=== PATIENT | female | born 1950 | race Caucasian/White ===

== ENCOUNTER 2019-10-10 01:22 | Day surgery (SDC) | payer OTHER, SELFPAY ==
[2019-09-16 11:54] VITALS: BMI 44.4
[2019-10-10] VITALS (10 sets, daily range): BP systolic 117–152; BP diastolic 61–83; PULSE 57–76; RESP 12–20; TEMP 36.1–36.6; O2SAT 94–100
--- NOTE | ~2019-10-10 | MM_ITS ---
CORRECTED REPORT Description changed to MM surgical specimen RT. See bold/italic text below. 10/10/2019 sef MM surgical specimen RT 10/10/2019 11:12 Indication: Right breast cancer. Wire localization biopsy. Procedure: Specimen radiograph post excisional biopsy Comparison: 10/10/2019 Findings: Specimen radiograph contains the hookwire and tissue marker as well as associated density. Impression: 1: Specimen radiograph contains tissue marker of interest. Please refer to procedural report for details. Reviewed, dictated and finalized at location A. MAKER NICHOL Impression: 1: Specimen radiograph contains tissue marker of interest. Please refer to proc edural report for details.
--- NOTE | ~2019-10-10 | MM_ITS ---
EXAMINATION: MM needle loc RT MAMMOGRAPHY SPECIMEN DATE: 10/10/2019 09:12 ENGAGEMENT ENGINEER INDICATION: Right breast cancer. TECHNIQUE: The procedure for a mammography-guided needle localization was discussed with the patient' s. Risks and benefits were detailed, including risks of bleeding, infection, pain, and nondiagnostic specimen. The patient verbalized understanding and agreed to proceed. The time out was performed to verify the patient's name, date of , and site of procedure. The p atient was placed in right breast compression, and the skin overlying the right breast was prepped in usual fashion. Utilizing mammography guidance, a needle was advanced into the right breast. Two co nfirmatory films were obtained. The patient tolerated procedure without immediate complication. A specimen radiograph was performed.] FINDINGS: Two view confirmatory films of the right breast demonstrate a the wire adjacent to the tiss ue marker. The tissue marker is contained within the surgical specimen.] IMPRESSION: 1. Successful mammography-guided right breast needle localization. Reviewed, dictated and finalized at location A. GEMENT ENGINEER
--- NOTE | ~2019-10-10 | NM_ITS ---
NM sentinel node inject only 10/10/2019 11:17 CLAY DRY PRESS HELPER INDICATION: Right breast cancer] TECHNIQUE: 1 Millicuries Tc 99m filtered sulfur colloid was injected and 4 aliquots in the anterior u pper outer quadrant of the breast near the areola. No images were obtained.] IMPRESSION: 1: Status post right breast sentinel lymph node radiopharmaceutical injection. Reviewed, dictated and finalized at location A. DRY PRESS HELPER
[2019-10-10] MEDS: LACTATED RINGERS 1,000 ML 30 ML IV CONT ×3 (07:00→12:05)
--- NOTE | 2019-10-10 07:56 | PM.IMHP ---
H&P: HPI History of Present Illness Chief complaint: Right Breast Ca/ ER possitive Narrative: Dominga Barron is a 69 year old female Dominga returned to the office after recent ultrasound guided right breast bx on 07/21/19. 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 Because of her recent hospitalization for an incarcerated ventral incisional hernia near the umbilicus she did have her breast surgery as soon as planned. She did keep her appointment with Dr Rodriguez and they did discuss her recent breast cancer. They agreed to do a right breast lumpectomy and SLN bx when patient is healed from recent hernia surgery. Patient reports she will be had a MR of the breasts. which showed no other lesions other than the known right breast tumor. On the MR study the mass was about 9 x 7 x 9 mm in the anterior 3rd of the central right breast and there was no evidence of lymphadenopathy on the MR study. Left breast was reported as normal. Patient reports also had genetic testing completed and Dr Rodriguez had done additional testing on the tissue and she showed no genetic predisposition to breast cancer or other cancers. She was not found to have a genetic predisposition to breast cancer. An Oncotype Tx study showed a recurrence score of 12 which is felt to be low. Patient presents at this time to proceed with the right breast lumpectomy and sentinel lymph node biopsy. Review of Systems Constitutional: Constitutional: Reports no additional constitutional complaints, Reports fatigue and Denies malaise Comments: Obesity with a BMI of 43 Eyes: Eyes: Denies change in vision and Denies loss of vision ENT: Reports Normal hearing present, Denies change in voice, Denies dizziness, Denies hoarseness and Denies sore throat Cardiovascular: Cardiovascular: Denies chest pain, Denies leg edema and Denies dyspnea Respiratory: Respiratory: Denies cough, Denies dyspnea and Denies wheezing Gastrointestinal: Gastrointestinal: Denies hematochezia, Denies change in bowel habits and Denies heartburn Genitourinary: Genitourinary: Denies urinary frequency and Denies urinary incontinence Neurologic: Reports Normal hearing present, Denies confusion, Denies dizziness, Denies loss of vision, Denies memory loss and Denies seizure-like activity Psychiatric: Psychiatric: Denies confusion, Denies depression and Denies memory loss Endocrine: Endocrine: Denies cold intolerance and Reports fatigue Hematologic/Lymphatic: Hematologic/Lymphatic: Denies easy bleeding and Denies easy bruising Allergic/Immunologic: Allergic/Immunologic: Denies wheezing PMFSH Social History Social History Smoking packs per day: 1.5 Smoking cigarettes per day: 30.0 Years smoked: 30 Smoking pack-years: 45.00 Smoking status: Former smoker Tobacco type: cigarettes Second hand tobacco smoke exposure: No Smoking end date: 09/21/01 Alcohol intake: never Substance use type: does not use Additional living arrangements comments: patient lives with her . Gender identity (if verbalized by the patient): Female Spiritual care concerns: No Agree to blood products: Yes Meds Home Medications and Allergies Home Medications Medication Instructions Recorded Confirmed Type Cinnamon 1 tablet PO DAILY 08/09/19 10/10/19 History Fish Oil 1,000 mg PO DAILY 08/09/19 10/10/19 History anastrozole 1 mg PO DAILY #30 tablet 08/13/19 10/10/19 Rx calcium carbonate-vitamin D3 1 cap PO DAILY 09/16/19 10/10/19 History [Calcium 600 + D(3)] Allergies Allergy/AdvReac Type Severity Reaction Status Date / Time oxaliplatin Allergy Severe Dyspnea / Verified 10/10/19 07:29 SOB meloxicam Allergy Unknown Rash Verified 10/10/19 07:29 Viwrbhg-Ucw-Mmj Reductase Allergy Unknown Muscle Verified 10/10/19 07:29 Inhibitor aches Vital Signs Vital Signs - 24 hr 10/10/19 07:34 Temperature 36.1
--- NOTE | 2019-10-10 08:56 | SUR.PREOP ---
[id number] pt to needle loc per wheelchair/family to waiting area 0850 returned from radiology/no distress noted/comfort measures provided/family returned to room
--- NOTE | 2019-10-10 09:17 | WPDANESEPPF ---
Anes - Initial Pre Proc Eval Procedure: Operation Date: 10/10/19 09:30 Proposed Procedures p Right Mammogram And/Or Ultrasound Guided Needle Localization Right Breast Lumpectomy, Right [place] Lymph Node Biopsy, Possible Right Axillary Node Dissection - Leandro Sofia MD Date/Time: 10/10/19 09:17 Surgeon: Leandro Sofia MD Pre Op Diagnosis: Right Breast Ca/ ER possitive Patient Data Age: 69 Gender: F Height: 1.55 m Weight: 104.1 kg Last Vital Signs Temp 36.1 C L 10/10/19 07:34 Pulse 76 10/10/19 07:34 Resp 20 10/10/19 07:34 BP 129/81 10/10/19 07:34 Pulse Ox 100 10/10/19 07:34 Allergies Allergy/AdvReac Type Severity Reaction Status Date / Time oxaliplatin Allergy Severe Dyspnea / Verified 10/10/19 07:29 SOB meloxicam Allergy Unknown Rash Verified 10/10/19 07:29 Mfxrcld-Uyq-Bqm Reductase Allergy Unknown Muscle Verified 10/10/19 07:29 Inhibitor aches Home Medications Medication Instructions Recorded Confirmed Type Cinnamon 1 tablet PO DAILY 08/09/19 10/10/19 History Fish Oil 1,000 mg PO DAILY 08/09/19 10/10/19 History anastrozole 1 mg PO DAILY #30 tablet 08/13/19 10/10/19 Rx calcium carbonate-vitamin D3 1 cap PO DAILY 09/16/19 10/10/19 History [Calcium 600 + D(3)] Patient hx anesthesia problems: none Family hx anesthesia problems: none PMFSH Social History Social History Smoking packs per day: 1.5 Smoking cigarettes per day: 30.0 Years smoked: 30 Smoking pack-years: 45.00 Smoking status: Former smoker Tobacco type: cigarettes Second hand tobacco smoke exposure: No Smoking end date: 09/21/01 Alcohol intake: never Substance use type: does not use Additional living arrangements comments: patient lives with her . Gender identity (if verbalized by the patient): Female Spiritual care concerns: No Agree to blood products: Yes Anes - Eval Final PreProcedure Day of Procedure 10/10/19 09:17 Patient weight: morbidly obese Heart: regular rate and rhythm Lungs: clear to auscultation and normal air movement Airway: Mallampati scale class II Neurological: alert and oriented Last oral intake: >/= 8 hours ASA classification: III Emergent: no Anesthetic plan: proceed Anesthesia type and monitoring: general ETT Informed Consent: The patient's anesthetic plan and its attendant risks and benefits were discussed with the patient/family/POA. Questions were solicited and answers provided to the satisfaction of the patient/family/POA.
[2019-10-10] MEDS: ceFAZolin 2 GM/D5W 50 ML 2 GM/50 ML BAG IVPB (09:35)
[2019-10-10] MEDS: ISOSULFAN BLUE 1% INJ 5 ML VIAL SUB-Q (10:05)
[2019-10-10] MEDS: BUPIVACAINE/EPINEPHRINE 0.25% 50 ML VIAL INFILTRATE (10:42)
[2019-10-10] MEDS: PROPARACAINE HCL 0.5% 15 ML OPHTH SOLN 1 DROP EACH EYE (13:43)
--- NOTE | 2019-10-10 14:00 | PM.PROC ---
Procedure Note - Detailed Date of procedure: 10/10/19 Pre-op diagnosis: Right Breast Ca/ ER possitive Post-op diagnosis: same Procedure performed: Needle localized right breast lumpectomy [place] lymph node biopsy x3 right axilla. Injection of Lymphazurin blue, periareolar.(for dentification of sentinel node) Description of procedure: The patient was seen preoperatively in the holding area, and I marked the patient on the operative side.(the Right). She was brought to the operating room and anesthesia delivered. She was prepped and draped in the usual sterile fashion. A timeout was performed confirming patient and site of surgery. Then after inspection of the breast I carefully used Lymphazarin blue 5 cc to inject 1 cc in the subcuticular area the areola at the edge of the areola at [address] This was done with a 22 gauge needle and then the breast was massaged for 1 minute. An axillary incision was made, and the subcutaneous tissues were dissected with electrocautery and the clavipectoral fascia was incised with electrocautery. Using the sentinel lymph node probe, the sentinel lymph node was identified and the count in vivo was 2039 . I carefully dissected out what to be a lymph node that was marked with high counts and also with a small blue green lymphatic heading directly to it. There was some blue green dye that appeared to be in the lymph node in the center of the approximately 2 x 1 cm area of the axillary tissue removed. Then [place] 10[place] [address] was recorded. The count in the axilla after removing this lymph node was between 120 and 150, for background noise. The sentinel lymph node was sent fresh for pathologic evaluation. The wound was irrigated, hemostased, and closed with 3-0 Vicryl and 4-0 Monocryl. That wound was draped away with a sterile towel and the operative breast was examined. The localizing wire was noted to be entering the breast in the Outer quadrant angled slightly inferior and lateral. This was entering just above the nipple-areolar complex in that area. A curvilinear incision was made along the wire and the tissue surrounding the distal end of the wire was removed widely with electrocautery. The specimen was oriented with the use of 6 colorful dyes. These were appropriately labeled for the sides of the specimen including superficial, deep, each side, superior, and inferior. and sent for specimen mammogram. I did send the breast tissue for fresh tissue exam immediate report requested at pathology. We waited to hear from pathology. First we heard that touch preps on the sentinel lymph node were negative. Also there were 2 smaller nodes along side the 1 marked as the 1st sentinel lymph node therefore after discussion with pathology we are calling these all 3 sentinel lymph nodes. Following this pathology called back also about the breast specimen. Mammography of the specimen showed the original biopsy clip that marked the tumor was in the specimen as was all of the wire. Pathologist stated that we were close on the inferior margin therefore I went back to the patient where the wound was still open on the Rt. breast and excised an approximately 2.5 cm round area with a depth of 1 cm along the inferior margin of the lumpectomy cavity. A single black stitch was placed at the new inferior margin. This was also sent to pathology. Following the above we made sure that there was good hemostasis within the breast incision site with Bovie cautery. This site was then closed with buried 3- 0 Vicryl sutures and a running subcuticular closure of 4 0 Monocryl. Surgical glue was applied to both incision sites. Patient was taken recovery room in good condition. All counts were correct at the end of the case. Specimen mammogram was called back adequate by the radiologist containing a clip, wire, and the abnormality. The patient tolerated the procedure well and was discharged to the recovery room in stable
== END 2019-10-10 14:38 | disposition home or self-care (01) ==
PROVIDERS: PCP Family Medicine; Visit Provider Surgery
PROC: (CPT 19301; principal; 2019-10-10 09:30)
DX: C50.411 Malignant neoplasm of upper-outer quadrant of right female breast (principal); C77.3 Secondary and unspecified malignant neoplasm of axilla and upper limb lymph nodes; Z17.0 Estrogen receptor positive status [ER+]; Z87.891 Personal history of nicotine dependence; E66.01 Morbid (severe) obesity due to excess calories; Z68.41 Body mass index [BMI] 40.0-44.9, adult
CPT/HCPCS: 19301; 38525; 19281; 38792; 76098; 88307; 88333; 88342; 88365; A9270; A9520; C1713; C1769; J0330; J0690; J1100; J1170; J1885; J2001; J2250; J2370; J2405; J2704; J3010; J7120

== ENCOUNTER 2019-12-21 08:56 | Outpatient (CLI) | payer OTHER, SELFPAY ==
[2019-12-21 09:07] LABS: Basophils Percent Auto 0.8 % (0.2-1.2); Eosinophils Absolute Auto 0.1 K/mm3 (0-0.3); Eosinophils Percent Auto 2.7 % (0-4.4); Hematocrit 45.4 % (37.0-47.0); Hemoglobin 14.4 g/dL (12.0-15.0); Immature Granulocyte Absolute 0.01 K/mm3 (0.00-0.031); Immature Granulocyte Percent A 0.2 % (0-0.5); Lymphocytes Absolute Auto 0.81 K/mm3 (0.9-3.2); Lymphocytes Percent Auto 16.6 % (18.3-44.2); Mean Corpuscular HGB Conc 31.7 g/dl (32-36); Mean Corpuscular Hemoglobin 29.1 pg (26-34); Mean Corpuscular Volume 91.9 fl (80-100); Monocytes Absolute Auto 0.4 K/mm3 (0.1-0.6); Monocytes Percent Auto 8.8 % (2.6-8.5); Neutrophils Absolute Auto 3.5 K/mm3 (1.3-6.7); Neutrophils Percent Auto 70.9 % (45.5-73.1); Platelet Count Result 218 k/mm3 (150-375); Red Blood Count 4.94 M/mm3 (4.2-5.4); Red Cell Distribution Width 14.2 % (11.5-14.5); White Blood Count 4.9 K/mm3 (4.5-10.0)
[2019-12-21 11:44] LABS: Alanine Aminotransferase 12 U/L (4-35); Albumin Level 3.8 g/dL (3.5-5.1); Alkaline Phosphatase 115 U/L (38-126); Aspartate Amino Transferase 18 U/L (14-36); Blood Urea Nitrogen 13 mg/dL (7-17); Calcium 9.2 mg/dL (8.4-10.2); Carbon Dioxide 26 mmol/L (22-30); Chloride 107 mmol/L (98-107); Estimated Glomerular Filt Rate > 60; Glucose 93 mg/dL (65-105)
[2019-12-21 11:45] LABS: Bilirubin,Total 0.5 mg/dL (0.2-1.3); Sodium 140 mmol/L (137-145)
[2019-12-21 11:58] LABS: Carcinoembryonic Antigen 1.6 ng/mL (0.0-3.0)
== END 2019-12-21 08:57 | disposition home or self-care (01) ==
LOC: ANHLAB 08:58
PROVIDERS: PCP Family Medicine; Visit Provider Internal Medicine Hematology & Oncology
DX: C18.9 Malignant neoplasm of colon, unspecified (principal)
CPT/HCPCS: 36415; 80053; 82378; 85025

== ENCOUNTER 2020-02-22 13:30 | Outpatient (CLI) | payer OTHER, SELFPAY ==
--- NOTE | ~2020-02-22 | CT_ITS ---
EXAMINATION: CT chest abdomen pelvis w con DATE: 02/22/2020 14:04 INDICATION: Colon cancer. TECHNIQUE: Computed tomography (CT) of the chest, abdomen, and pelvis was performed with 100 mL Omnip aque 350 intravenous contrast. Automated exposure control and iterative reconstruction technique were employed. The dose-length product was 1468.69 mGy-cm. COMPARISON: CT abdomen and pelvis 08/09/2019, PET CT 12/17/2016 FINDINGS: CHEST CT: The lungs demonstrate mild atelectasis. A calcified right lung nodule is consistent with old granulom atous disease. No pleural effusion. The heart size is normal. There are coronary artery calcification s. No pericardial effusion. There is a small sliding hiatal hernia. There are surgical changes of rig ht breast with 2.0 x 2.8 x 3.9 cm seroma. There are surgical clips in right axilla. ABDOMEN/PELVIS CT: The liver and spleen are normal. There are changes of cholecystectomy. The pancreas and adrenal gland s are normal. There is cortical thinning of the kidneys. There are cysts in the kidneys measuring up to 5.8 cm on the left. There are no dilated loops of bowel. There is diverticulosis of the colon with out evidence of diverticulitis. There are changes of right hemicolectomy. There are no pathologically enlarged lymph nodes. There is no free intraperitoneal fluid. There is a chronic benign bone island in left ilium. IMPRESSION: 1. No evidence of metastatic disease. 2. Small sliding hiatal hernia. Reviewed, dictated and finalized at location A.
[2020-02-22 13:57] LABS: Estimated Glomerular Filt Rate > 60
== END 2020-02-22 13:31 | disposition home or self-care (01) ==
PROVIDERS: PCP Family Medicine; Visit Provider Internal Medicine Hematology & Oncology
DX: C18.9 Malignant neoplasm of colon, unspecified (principal); K44.9 Diaphragmatic hernia without obstruction or gangrene
CPT/HCPCS: 36415; 71260; 74177; 80053; 82378; 85025; 86300; Q9967

== ENCOUNTER 2020-02-22 14:25 | Outpatient (CLI) | payer OTHER, SELFPAY ==
[2020-02-22 14:40] LABS: Basophils Percent Auto 0.9 % (0.2-1.2); Eosinophils Absolute Auto 0.1 K/mm3 (0-0.3); Eosinophils Percent Auto 2.2 % (0-4.4); Hematocrit 43.5 % (37.0-47.0); Hemoglobin 14.1 g/dL (12.0-15.0); Immature Granulocyte Absolute 0.01 K/mm3 (0.00-0.031); Immature Granulocyte Percent A 0.2 % (0-0.5); Lymphocytes Absolute Auto 0.79 K/mm3 (0.9-3.2); Lymphocytes Percent Auto 17.1 % (18.3-44.2); Mean Corpuscular HGB Conc 32.4 g/dl (32-36); Mean Corpuscular Hemoglobin 29.1 pg (26-34); Mean Corpuscular Volume 89.7 fl (80-100); Monocytes Absolute Auto 0.4 K/mm3 (0.1-0.6); Monocytes Percent Auto 8.2 % (2.6-8.5); Neutrophils Absolute Auto 3.3 K/mm3 (1.3-6.7); Neutrophils Percent Auto 71.4 % (45.5-73.1); Platelet Count Result 224 k/mm3 (150-375); Red Blood Count 4.85 M/mm3 (4.2-5.4); Red Cell Distribution Width 14.3 % (11.5-14.5); White Blood Count 4.6 K/mm3 (4.5-10.0)
[2020-02-22 17:48] LABS: Alanine Aminotransferase 10 U/L (4-35); Albumin Level 3.9 g/dL (3.5-5.1); Alkaline Phosphatase 123 U/L (38-126); Aspartate Amino Transferase 19 U/L (14-36); Bilirubin,Total 0.5 mg/dL (0.2-1.3); Blood Urea Nitrogen 15 mg/dL (7-17); Carbon Dioxide 21 mmol/L (22-30); Chloride 107 mmol/L (98-107); Estimated Glomerular Filt Rate > 60; Glucose 88 mg/dL (65-105); Potassium 4.4 mmol/L (3.4-5.0); Sodium 137 mmol/L (137-145)
[2020-02-22 18:19] LABS: Carcinoembryonic Antigen 1.3 ng/mL (0.0-3.0)
[2020-02-26 06:52] LABS: CA 27.29 19 U/mL (<38)
== END 2020-02-22 14:26 | disposition home or self-care (01) ==
PROVIDERS: PCP Family Medicine; Visit Provider Internal Medicine Hematology & Oncology
DX: C50.411 Malignant neoplasm of upper-outer quadrant of right female breast (principal); C18.9 Malignant neoplasm of colon, unspecified; Z17.0 Estrogen receptor positive status [ER+]
CPT/HCPCS: 36415; 80053; 82378; 85025; 86300

== ENCOUNTER 2020-05-23 12:28 | Outpatient (CLI) | payer OTHER, SELFPAY ==
[2020-05-23 12:48] LABS: Basophils Absolute Auto 0.1 K/mm3 (0.0-0.1); Basophils Percent Auto 0.9 % (0.2-1.2); Eosinophils Absolute Auto 0.2 K/mm3 (0-0.3); Eosinophils Percent Auto 3.3 % (0-4.4); Hemoglobin 13.7 g/dL (12.0-15.0); Immature Granulocyte Absolute 0.02 K/mm3 (0.00-0.031); Immature Granulocyte Percent A 0.4 % (0-0.5); Lymphocytes Absolute Auto 0.97 K/mm3 (0.9-3.2); Lymphocytes Percent Auto 17.9 % (18.3-44.2); Mean Corpuscular HGB Conc 32.6 g/dl (32-36); Mean Corpuscular Hemoglobin 29.5 pg (26-34); Mean Corpuscular Volume 90.3 fl (80-100); Mean Platelet Volume 10.1 fl (7.4-10.4); Monocytes Absolute Auto 0.4 K/mm3 (0.1-0.6); Monocytes Percent Auto 8.1 % (2.6-8.5); Neutrophils Absolute Auto 3.8 K/mm3 (1.3-6.7); Neutrophils Percent Auto 69.4 % (45.5-73.1); Platelet Count Result 212 k/mm3 (150-375); Red Blood Count 4.65 M/mm3 (4.2-5.4); Red Cell Distribution Width 14.2 % (11.5-14.5); White Blood Count 5.4 K/mm3 (4.5-10.0)
[2020-05-23 16:53] LABS: Alanine Aminotransferase 8 U/L (4-35); Albumin Level 3.7 g/dL (3.5-5.1); Alkaline Phosphatase 112 U/L (38-126); Anion Gap 5 mmol/L (8-16); Aspartate Amino Transferase 17 U/L (14-36); Bilirubin,Total 0.5 mg/dL (0.2-1.3); Blood Urea Nitrogen 15 mg/dL (7-17); Calcium 9.4 mg/dL (8.4-10.2); Carbon Dioxide 27 mmol/L (22-30); Chloride 106 mmol/L (98-107); Cholesterol 244 mg/dL (0-200); Estimated Glomerular Filt Rate > 60; Glucose 94 mg/dL (65-105); HDL Direct 51 mg/dL; Potassium 4.1 mmol/L (3.4-5.0); Sodium 138 mmol/L (137-145); Triglycerides 216 mg/dL (<150)
[2020-05-23 17:04] LABS: LDL Cholesterol Direct 155 mg/dL
[2020-05-23 17:23] LABS: Carcinoembryonic Antigen 1.5 ng/mL (0.0-3.0)
== END 2020-05-23 12:29 | disposition home or self-care (01) ==
PROVIDERS: PCP Family Medicine; Visit Provider Internal Medicine Hematology & Oncology
DX: C18.9 Malignant neoplasm of colon, unspecified (principal); I10 Essential (primary) hypertension; E78.5 Hyperlipidemia, unspecified
CPT/HCPCS: 36415; 80053; 80061; 82378; 85025

== ENCOUNTER → 2020-06-11 14:03 | Outpatient (CLI) | payer OTHER, SELFPAY ==
--- NOTE | ~2020-06-11 | MM_ITS ---
EXAMINATION: MM diagnostic mae RT w jones HISTORY: Malignant neoplasm of upper outer quadrant of right breast; status post partial mastectomy a nd radiation treatment TECHNIQUE: ML, MLO and cc 3-D tomosynthesis images of the right breast were performed and synthetic 2 -D images were generated. CAD analysis was submitted and interpreted. COMPARISON: 07/21/2019 postbiopsy mammogram 06/24/2019 diagnostic right digital mammogram and limited right breast ultrasound 06/10/2019 bilateral digital screening mammogram BREAST PARENCHYMAL COMPOSITION: There are scattered areas of fibroglandular density. FINDINGS: Surgical clips are noted in the axillary region consistent with prior axillary node dissect ion. There is ill-defined increased density in the central right breast, likely postsurgical changes and p ostradiation change. No discrete mass lesion or any malignant calcification is evident. IMPRESSION: 1. BI-RADS Category 2: Benign 2. Status post right partial mastectomy and radiation treatment and axillary node dissection for [address] cancer; no residual or recurrent mass lesion is evident BI-RADS Category 2: Benign finding(s). Reviewed, dictated and finalized at location A. IMPRESSION: 1. BI-RADS Category 2: Benign 2. Status post right partial mastectomy and radiation treatment and axillary no de dissection for breast cancer; no residual or recurrent mass lesion is eviden t BI-RADS Category 2: Benign finding(s).
== END ==
PROVIDERS: PCP Family Medicine; Visit Provider Internal Medicine Hematology & Oncology
DX: C50.411 Malignant neoplasm of upper-outer quadrant of right female breast (principal); Z17.0 Estrogen receptor positive status [ER+]
CPT/HCPCS: 77061; 77065; G0279

== ENCOUNTER 2020-08-20 10:40 | Outpatient (CLI) | payer OTHER, SELFPAY ==
[2020-08-20 10:56] LABS: Basophils Absolute Auto 0.1 K/mm3 (0.0-0.1); Eosinophils Absolute Auto 0.1 K/mm3 (0-0.3); Eosinophils Percent Auto 2.4 % (0-4.4); Hematocrit 43.7 % (37.0-47.0); Hemoglobin 14.2 g/dL (12.0-15.0); Immature Granulocyte Absolute 0.01 K/mm3 (0.00-0.031); Immature Granulocyte Percent A 0.2 % (0-0.5); Lymphocytes Absolute Auto 0.96 K/mm3 (0.9-3.2); Lymphocytes Percent Auto 19.2 % (18.3-44.2); Mean Corpuscular HGB Conc 32.5 g/dl (32-36); Mean Corpuscular Hemoglobin 29.7 pg (26-34); Mean Corpuscular Volume 91.4 fl (80-100); Mean Platelet Volume 10.2 fl (7.4-10.4); Monocytes Absolute Auto 0.4 K/mm3 (0.1-0.6); Monocytes Percent Auto 7.6 % (2.6-8.5); Neutrophils Absolute Auto 3.5 K/mm3 (1.3-6.7); Neutrophils Percent Auto 69.6 % (45.5-73.1); Platelet Count Result 202 k/mm3 (150-375); Red Blood Count 4.78 M/mm3 (4.2-5.4); Red Cell Distribution Width 14.3 % (11.5-14.5)
[2020-08-20 12:29] LABS: Triglycerides 200 mg/dL (<150)
[2020-08-20 12:37] LABS: Alanine Aminotransferase 10 U/L (4-35); Albumin Level 3.9 g/dL (3.5-5.1); Alkaline Phosphatase 112 U/L (38-126); Aspartate Amino Transferase 21 U/L (14-36); Bilirubin,Total 0.8 mg/dL (0.2-1.3); Blood Urea Nitrogen 13 mg/dL (7-17); Calcium 9.4 mg/dL (8.4-10.2); Carbon Dioxide 29 mmol/L (22-30); Estimated Glomerular Filt Rate > 60; Glucose 96 mg/dL (65-105)
[2020-08-20 12:41] LABS: LDL Cholesterol Direct 107 mg/dL
[2020-08-20 12:45] LABS: Anion Gap 8 mmol/L (8-16); Chloride 104 mmol/L (98-107); Potassium 4.1 mmol/L (3.4-5.0); Sodium 141 mmol/L (137-145)
[2020-08-20 13:03] LABS: Carcinoembryonic Antigen 1.8 ng/mL (0.0-3.0)
[2020-08-23 14:43] LABS: CA 15-3 10 U/mL (<32)
== END 2020-08-20 10:41 | disposition home or self-care (01) ==
PROVIDERS: PCP Internal Medicine; Referring Provider Family Medicine; Visit Provider Internal Medicine Hematology & Oncology
DX: C18.9 Malignant neoplasm of colon, unspecified (principal); C50.411 Malignant neoplasm of upper-outer quadrant of right female breast; Z17.0 Estrogen receptor positive status [ER+]; E78.1 Pure hyperglyceridemia; E78.00 Pure hypercholesterolemia, unspecified
CPT/HCPCS: 36415; 80053; 82378; 83721; 84478; 85025; 86300

== ENCOUNTER → 2020-11-27 07:47 | Outpatient (CLI) | payer OTHER, SELFPAY ==
--- NOTE | ~2020-11-27 | MM_ITS ---
EXAMINATION: MM diagnostic mae BI w jones HISTORY: History of right breast cancer; status post right partial mastectomy TECHNIQUE: ML, MLO and craniocaudal 3-D tomosynthesis images of both breasts were performed and synth etic 2-D images were generated. CAD analysis was submitted and interpreted. COMPARISON: Serial screening and diagnostic mammograms and ultrasound examinations dating back to 04/22 BREAST PARENCHYMAL COMPOSITION: There are scattered areas of fibroglandular density. FINDINGS: Multiple surgical clips are noted in the right axillary area consistent with right axillary node dissection. Previously reported ill-defined increased density in the central right breast noted on 06/11/2020 diag nostic right digital mammogram has diminished, likely due to resolving postoperative and postradiatio n changes. No interval suspicious mass, new architectural distortion, skin thickening or retraction is evident i n either breast. No malignant calcification. IMPRESSION: 1. Status post right partial mastectomy, radiotherapy and right axillary node dissection 2. No mammographic evidence of recurrent or new malignancy 3. Annual mammographic screening is recommended unless clinically indicated earlier BI-RADS Category 2: Benign finding(s). Reviewed, dictated and finalized at location A. RAL SUPPLY SUPERVISOR IMPRESSION: 1. Status post right partial mastectomy, radiotherapy and right axillary node d issection 2. No mammographic evidence of recurrent or new malignancy 3. Annual mammographic screening is recommended unless clinically indicated ear lier BI-RADS Category 2: Benign finding(s).
== END ==
PROVIDERS: PCP Internal Medicine; Visit Provider Internal Medicine Hematology & Oncology
DX: C50.411 Malignant neoplasm of upper-outer quadrant of right female breast (principal); Z17.0 Estrogen receptor positive status [ER+]
CPT/HCPCS: 77062; 77066; G0279

== ENCOUNTER 2020-11-27 08:51 | Outpatient (CLI) | payer OTHER, SELFPAY ==
[2020-11-27 09:05] LABS: Basophils Absolute Auto 0.1 K/mm3 (0.0-0.1); Basophils Percent Auto 1.2 % (0.2-1.2); Eosinophils Absolute Auto 0.2 K/mm3 (0-0.3); Eosinophils Percent Auto 4.1 % (0-4.4); Hematocrit 43.4 % (37.0-47.0); Hemoglobin 14.2 g/dL (12.0-15.0); Immature Granulocyte Absolute 0.02 K/mm3 (0.00-0.031); Immature Granulocyte Percent A 0.4 % (0-0.5); Lymphocytes Absolute Auto 0.96 K/mm3 (0.9-3.2); Lymphocytes Percent Auto 17.1 % (18.3-44.2); Mean Corpuscular HGB Conc 32.7 g/dl (32-36); Mean Corpuscular Hemoglobin 29.8 pg (26-34); Mean Platelet Volume 10.3 fl (7.4-10.4); Monocytes Absolute Auto 0.5 K/mm3 (0.1-0.6); Monocytes Percent Auto 8.2 % (2.6-8.5); Neutrophils Absolute Auto 3.9 K/mm3 (1.3-6.7); Platelet Count Result 225 k/mm3 (150-375); Red Blood Count 4.77 M/mm3 (4.2-5.4); White Blood Count 5.6 K/mm3 (4.5-10.0)
[2020-11-27 12:42] LABS: Alanine Aminotransferase 9 U/L (4-35); Alkaline Phosphatase 102 U/L (38-126); Anion Gap 6 mmol/L (8-16); Aspartate Amino Transferase 18 U/L (14-36); Bilirubin,Total 0.5 mg/dL (0.2-1.3); Blood Urea Nitrogen 17 mg/dL (7-17); Calcium 9.5 mg/dL (8.4-10.2); Carbon Dioxide 27 mmol/L (22-30); Chloride 108 mmol/L (98-107); Estimated Glomerular Filt Rate > 60; Glucose 99 mg/dL (65-105); Potassium 4.2 mmol/L (3.4-5.0); Sodium 141 mmol/L (137-145)
[2020-11-27 13:10] LABS: Carcinoembryonic Antigen 1.8 ng/mL (0.0-3.0)
[2020-11-27 13:12] LABS: Free T4 Free Thyroxine 1.39 ng/mL (0.78-2.19)
[2020-12-02 08:20] LABS: CA 15-3 10 U/mL (<32)
== END 2020-11-27 08:52 | disposition home or self-care (01) ==
LOC: ANHLAB 08:52
PROVIDERS: Nurse Practitioner; PCP Internal Medicine; Visit Provider Internal Medicine Hematology & Oncology
DX: C50.411 Malignant neoplasm of upper-outer quadrant of right female breast (principal); Z17.0 Estrogen receptor positive status [ER+]; C18.9 Malignant neoplasm of colon, unspecified; R53.83 Other fatigue
CPT/HCPCS: 36415; 80053; 82378; 84439; 84443; 85025; 86300

== ENCOUNTER → 2021-01-26 01:54 | Outpatient (CLI) | payer OTHER, SELFPAY ==
[2021-01-27 14:52] LABS: SARS-CoV-2 RNA PCR Negative
== END ==
PROVIDERS: PCP Internal Medicine; Visit Provider Internal Medicine Gastroenterology
DX: Z01.812 Encounter for preprocedural laboratory examination (principal); Z20.822 Contact with and (suspected) exposure to COVID-19
CPT/HCPCS: C9803; U0003; U0005

== ENCOUNTER 2021-01-29 02:04 | Day surgery (SDC) | payer OTHER, SELFPAY ==
[2021-01-18 13:25] VITALS: BMI 44.9
[2021-01-29 06:24] VITALS: BP 146/96; PULSE 93; RESP 18; TEMP 36.2; O2SAT 100; BMI 44.6
[2021-01-29] MEDS: LACTATED RINGERS 1,000 ML 150 ML IV CONT (06:41)
--- NOTE | 2021-01-29 06:46 | WPDANESEPPF ---
Anes - Initial Pre Proc Eval Procedure: Operation Date: 01/29/21 07:30 Proposed Procedures p Screening Colonoscopy - Adonis Bah MD Date/Time: 01/29/21 06:46 Surgeon: Adonis Bah MD Pre Op Diagnosis: hx of colon ca Patient Data Age: 70 Gender: F Height: 1.55 m Weight: 107.2 kg Last Vital Signs Temp 36.2 C L 01/29/21 06:24 Pulse 93 01/29/21 06:24 Resp 18 01/29/21 06:24 BP 146/96 H 01/29/21 06:24 Pulse Ox 100 01/29/21 06:24 Allergies Allergy/AdvReac Type Severity Reaction Status Date / Time oxaliplatin Allergy Severe Dyspnea / Verified 01/29/21 06:21 SOB meloxicam Allergy Mild Rash Verified 01/29/21 06:21 Rbfsnju-Wlk-Qrd Reductase Allergy Unknown Muscle Verified 01/29/21 06:21 Inhibitor aches Home Medications Medication Instructions Recorded Confirmed Type anastrozole 1 mg PO DAILY #30 tablet 08/13/19 01/29/21 Rx Calcium 600 + D(3) 1 cap PO DAILY 09/16/19 01/29/21 History carboxymethylcellulose sodium 0.25 1 drp EACH EYE BID PRN 10/22/20 01/29/21 History % eye drops cinnamon bark 500 mg capsule 1,000 mg PO DAILY cap 10/22/20 01/29/21 History coenzyme Q36-[id number] E 100 mg-100 2 cap PO DAILY 10/22/20 01/29/21 History unit capsule rosuvastatin 5 mg tablet 5 mg PO 2XW 10/22/20 01/29/21 History inulin 2 gram chewable tablet 2 g PO DAILY 11/21/20 01/29/21 History metoprolol succinate 25 mg 25 mg PO DAILY #30 tablet 11/21/20 01/29/21 Rx tablet,extended release 24 hr sod picosulf 10 mg-magnes 3.5 160 ml PO BID #160 ml 01/08/21 01/29/21 Rx gram-citric 12 gram/160 mL oral solution Patient hx anesthesia problems: none Family hx anesthesia problems: none PMFSH Past Medical History Medical History Abnormal finding on breast imaging Acute hypokalemia Arthritis Bilateral cataracts Cancer of right breast (~06/2019) Colon cancer history of right-sided colon cancer status post right hemicolectomy and chemotherapy Colon cancer metastasized to intra-abdominal lymph node Colonoscopy planned Diarrhea Encounter for surgical aftercare following surgery on the digestive system Fatty liver GERD (gastroesophageal reflux disease) GI bleed Hiatal hernia HLD (hyperlipidemia) Hx of malignant neoplasm of colon Hyponatremia Kidney stones Malignant neoplasm of cecum (04/21/17) Morbid obesity with BMI of 40.0-44.9, adult (Unknown) Mucinous adenocarcinoma Osteoporosis Pap smear abnormality of cervix 07/31/20 Partial small bowel obstruction Port-A-Cath in place Secondary and unspecified malignant neoplasm of axilla and upper limb lymph nodes Ulcer Weakness Surgical History Surgical History H/O bilateral breast biopsy H/O construction of artificial vagina H/O hemicolectomy hand assisted laparoscopic right hemicolectomy in October of 2016 H/O tubal ligation Hx of appendectomy with the right hemicolectomy Hx of cholecystectomy open cholecystectomy in 1990 Umbilical hernia with obstruction Family History Family History Mother Hypertension Family history of congenital heart disease Family history of lung cancer Father Family history of pancreatic cancer Sibling Family history of malignant neoplasm of breast in first degree relative Social History Social History Smoking packs per day: 0.5 Smoking cigarettes per day: 10.0 Years smoked: 40 Smoking pack-years: 20.00 Smoking status: Former smoker Tobacco type: cigarettes Second hand tobacco smoke exposure: No Smoking end date: 09/21/01 Additional smoking assessment comments: about 3-4 cigarettes a day/ on and off smoker Alcohol intake: never Substance use type: does not use Living arrangements: with family Additional living arrangements comments: patient lives w
--- NOTE | 2021-01-29 07:41 | WPDGICN ---
Assessment and Plan Assessment and plan (1) Tubular carcinoma of right breast: Onset Date: ~05/2019 Code(s): C50.911 - Malignant neoplasm of unspecified site of right female breast Status: Acute (2) Colon cancer: Code(s): C18.9 - Malignant neoplasm of colon, unspecified Status: Acute Assessment and Plan: Patient has a history of colon cancer resected in October 2016. Plan is for surveillance colonoscopy now and intervals in the future. There was concern over her abdominal metastases to his small-bowel length noted. She continues to be followed by Oncology intermittently. GI Consult Note Consult date/time: 01/29/21 07:41 HPI: Dominga Barron is a 70 year old female Presents for follow-up colonoscopy. Patient has a history of colon cancer resected in October of 2016. She does have a history of a large sessile polyp. She also has been treated for breast cancer. She reports that her current weight appetite bowel movements are normal. She denies abdominal pain. She has had no bleeding. She presents today for follow-up colonoscopy. Family history is noncontributory. Review of Systems Review of Systems: All systems reviewed & are unremarkable except as noted in HPI and below PMFSH Past Medical History Medical History (Updated 01/29/21 @ 07:43 by Adonis Bah MD) Abnormal finding on breast imaging Acute hypokalemia Arthritis Bilateral cataracts Cancer of right breast (~06/2019) Colon cancer history of right-sided colon cancer status post right hemicolectomy and chemotherapy Colon cancer metastasized to intra-abdominal lymph node Colonoscopy planned Diarrhea Encounter for surgical aftercare following surgery on the digestive system Fatty liver GERD (gastroesophageal reflux disease) GI bleed Hiatal hernia HLD (hyperlipidemia) Hx of malignant neoplasm of colon Hyponatremia Kidney stones Malignant neoplasm of cecum (04/21/17) Morbid obesity with BMI of 40.0-44.9, adult (Unknown) Mucinous adenocarcinoma Osteoporosis Pap smear abnormality of cervix 07/31/20 Partial small bowel obstruction Port-A-Cath in place Secondary and unspecified malignant neoplasm of axilla and upper limb lymph nodes Ulcer Weakness Surgical History Surgical History H/O bilateral breast biopsy H/O construction of artificial vagina H/O hemicolectomy hand assisted laparoscopic right hemicolectomy in October of 2016 H/O tubal ligation Hx of appendectomy with the right hemicolectomy Hx of cholecystectomy open cholecystectomy in 1990 Umbilical hernia with obstruction Family History Family History Mother Hypertension Family history of congenital heart disease Family history of lung cancer Father Family history of pancreatic cancer Sibling Family history of malignant neoplasm of breast in first degree relative Social History Social History Smoking packs per day: 0.5 Smoking cigarettes per day: 10.0 Years smoked: 40 Smoking pack-years: 20.00 Smoking status: Former smoker Tobacco type: cigarettes Second hand tobacco smoke exposure: No Smoking end date: 09/21/01 Additional smoking assessment comments: about 3-4 cigarettes a day/ on and off smoker Alcohol intake: never Substance use type: does not use Living arrangements: with family Additional living arrangements comments: patient lives with her . Gender identity (if verbalized by the patient): Female Spiritual care concerns: No Agree to blood products: Yes Meds Home Medications and Allergies Home Medications Medication Instructions Recorded Confirmed Type anastrozole 1 mg PO DAILY #30 tablet 08/13/19 01/29/21 Rx Calcium 600 + D(3) 1 cap PO DAILY 09/16/19 01/29/21 History carboxymethylcellulose sodium 0.25 1 drp EACH EYE
[2021-01-29 07:47] VITALS: BP 117/68; PULSE 59; RESP 19; O2SAT 98
[2021-01-29 07:53] VITALS: BP 124/76; PULSE 61; RESP 22; O2SAT 98
[2021-01-29 08:03] VITALS: BP 118/52; PULSE 63; RESP 27; O2SAT 100
== END 2021-01-29 08:21 | disposition home or self-care (01) ==
PROVIDERS: PCP Internal Medicine; Visit Provider Internal Medicine Gastroenterology
PROC: 0DJD8ZZ Inspection of Lower Intestinal Tract, Via Natural or Artificial Opening Endoscopic (ICD-10-PCS; CPT 45378; principal; 2021-01-29 07:30)
DX: Z08 Encounter for follow-up examination after completed treatment for malignant neoplasm (principal); K64.8 Other hemorrhoids; K57.30 Diverticulosis of large intestine without perforation or abscess without bleeding; Z85.038 Personal history of other malignant neoplasm of large intestine; Z98.0 Intestinal bypass and anastomosis status; Z90.49 Acquired absence of other specified parts of digestive tract; Z85.89 Personal history of malignant neoplasm of other organs and systems; Z92.21 Personal history of antineoplastic chemotherapy; M81.0 Age-related osteoporosis without current pathological fracture; Z85.3 Personal history of malignant neoplasm of breast; K76.0 Fatty (change of) liver, not elsewhere classified; K21.9 Gastro-esophageal reflux disease without esophagitis; E78.5 Hyperlipidemia, unspecified; E66.01 Morbid (severe) obesity due to excess calories; Z68.41 Body mass index [BMI] 40.0-44.9, adult; Z87.891 Personal history of nicotine dependence
CPT/HCPCS: 45378; C9803; J2704; J7120; U0003; U0005

== ENCOUNTER 2021-03-01 08:25 | Outpatient (CLI) | payer OTHER, SELFPAY ==
[2021-03-01 08:47] LABS: Basophils Percent Auto 0.8 % (0.2-1.2); Eosinophils Absolute Auto 0.1 K/mm3 (0-0.3); Eosinophils Percent Auto 2.8 % (0-4.4); Hematocrit 43.9 % (37.0-47.0); Hemoglobin 14.3 g/dL (12.0-15.0); Immature Granulocyte Absolute 0.01 K/mm3 (0.00-0.031); Immature Granulocyte Percent A 0.2 % (0-0.5); Lymphocytes Absolute Auto 0.92 K/mm3 (0.9-3.2); Lymphocytes Percent Auto 18.7 % (18.3-44.2); Mean Corpuscular HGB Conc 32.6 g/dl (32-36); Mean Corpuscular Hemoglobin 29.2 pg (26-34); Mean Corpuscular Volume 89.8 fl (80-100); Mean Platelet Volume 10.1 fl (7.4-10.4); Monocytes Absolute Auto 0.4 K/mm3 (0.1-0.6); Monocytes Percent Auto 7.7 % (2.6-8.5); Neutrophils Absolute Auto 3.4 K/mm3 (1.3-6.7); Neutrophils Percent Auto 69.8 % (45.5-73.1); Platelet Count Result 204 k/mm3 (150-375); Red Blood Count 4.89 M/mm3 (4.2-5.4); White Blood Count 4.9 K/mm3 (4.5-10.0)
[2021-03-01 15:09] LABS: Alanine Aminotransferase 10 U/L (4-35); Alkaline Phosphatase 101 U/L (38-126); Anion Gap 9 mmol/L (8-16); Aspartate Amino Transferase 20 U/L (14-36); Bilirubin,Total 0.7 mg/dL (0.2-1.3); Blood Urea Nitrogen 13 mg/dL (7-17); Calcium 9.7 mg/dL (8.4-10.2); Carbon Dioxide 25 mmol/L (22-30); Chloride 110 mmol/L (98-107); Cholesterol 183 mg/dL (0-200); Estimated Glomerular Filt Rate > 60; Glucose 99 mg/dL (65-105); HDL Direct 52 mg/dL; Potassium 4.3 mmol/L (3.4-5.0); Sodium 144 mmol/L (137-145); Triglycerides 169 mg/dL (<150)
[2021-03-01 15:19] LABS: LDL Cholesterol Direct 76 mg/dL
[2021-03-01 15:34] LABS: Carcinoembryonic Antigen 1.6 ng/mL (0.0-3.0)
[2021-03-06 20:02] LABS: CA 15-3 13 U/mL (<32)
== END 2021-03-01 08:26 | disposition home or self-care (01) ==
LOC: ANHLAB 08:32
PROVIDERS: PCP Internal Medicine; Visit Provider Internal Medicine Hematology & Oncology
DX: C50.411 Malignant neoplasm of upper-outer quadrant of right female breast (principal); E78.5 Hyperlipidemia, unspecified; Z17.0 Estrogen receptor positive status [ER+]
CPT/HCPCS: 36415; 80053; 80061; 82378; 85025; 86300

== ENCOUNTER → 2021-06-03 07:36 | Outpatient (CLI) | payer OTHER, SELFPAY ==
--- NOTE | ~2021-06-03 | MM_ITS ---
EXAMINATION: MM diagnostic mae RT w jones HISTORY: Right breast cancer TECHNIQUE: Additional 3-D tomosynthesis images of the right breast were performed and synthetic 2-D i mages were generated. CAD analysis was submitted and interpreted. COMPARISON: Comparison to multiple prior studies sequentially, with oldest reviewed study dated 12/2018. BREAST PARENCHYMAL COMPOSITION: Breast composed of scattered areas of fibroglandular density. FINDINGS: There are no suspicious masses, calcifications or architectural distortion. In the right br east to suggest malignancy. There are surgical clips in the upper outer quadrant of the right breast. IMPRESSION: 1. No mammographic evidence for malignancy in the right breast. 2. Routine yearly screening mammogram and regular clinical breast examination are recommended. BI-RADS Category 1: Negative Reviewed, dictated and finalized at location A. IMPRESSION: 1. No mammographic evidence for malignancy in the right breast. 2. Routine yearly screening mammogram and regular clinical breast examination a re recommended. BI-RADS Category 1: Negative
== END ==
PROVIDERS: PCP Internal Medicine; Visit Provider Internal Medicine Hematology & Oncology
DX: C50.411 Malignant neoplasm of upper-outer quadrant of right female breast (principal); Z17.0 Estrogen receptor positive status [ER+]
CPT/HCPCS: 77061; 77065; G0279

== ENCOUNTER 2021-06-24 09:13 | Outpatient (CLI) | payer OTHER, SELFPAY ==
[2021-06-24 09:32] LABS: Basophils Absolute Auto 0.1 K/mm3 (0.0-0.1); Eosinophils Absolute Auto 0.1 K/mm3 (0-0.3); Eosinophils Percent Auto 2.5 % (0-4.4); Hemoglobin 13.7 g/dL (12.0-15.0); Immature Granulocyte Absolute 0.01 K/mm3 (0.00-0.031); Immature Granulocyte Percent A 0.2 % (0-0.5); Lymphocytes Absolute Auto 1.04 K/mm3 (0.9-3.2); Lymphocytes Percent Auto 21.8 % (18.3-44.2); Mean Corpuscular HGB Conc 31.9 g/dl (32-36); Mean Corpuscular Hemoglobin 29.4 pg (26-34); Mean Corpuscular Volume 92.3 fl (80-100); Mean Platelet Volume 10.2 fl (7.4-10.4); Monocytes Absolute Auto 0.4 K/mm3 (0.1-0.6); Monocytes Percent Auto 7.7 % (2.6-8.5); Neutrophils Absolute Auto 3.2 K/mm3 (1.3-6.7); Neutrophils Percent Auto 66.8 % (45.5-73.1); Platelet Count Result 217 k/mm3 (150-375); Red Blood Count 4.66 M/mm3 (4.2-5.4); Red Cell Distribution Width 14.4 % (11.5-14.5); White Blood Count 4.8 K/mm3 (4.5-10.0)
[2021-06-24 12:08] LABS: Alanine Aminotransferase 13 U/L (4-35); Albumin Level 4.3 g/dL (3.5-5.1); Alkaline Phosphatase 99 U/L (38-126); Anion Gap 6 mmol/L (8-16); Aspartate Amino Transferase 32 U/L (14-36); Bilirubin,Total 0.6 mg/dL (0.2-1.3); Blood Urea Nitrogen 15 mg/dL (7-17); Calcium 9.6 mg/dL (8.4-10.2); Carbon Dioxide 29 mmol/L (22-30); Chloride 106 mmol/L (98-107); Estimated Glomerular Filt Rate > 60; Glucose 87 mg/dL (65-110); Potassium 4.3 mmol/L (3.4-5.0); Sodium 141 mmol/L (137-145)
[2021-06-24 12:33] LABS: Carcinoembryonic Antigen 1.5 ng/mL (0.0-3.0)
[2021-06-27 15:32] LABS: CA 15-3 12 U/mL (<32)
== END 2021-06-24 09:14 | disposition home or self-care (01) ==
LOC: ANHLAB 09:15
PROVIDERS: PCP Internal Medicine; Visit Provider Internal Medicine Hematology & Oncology
DX: C18.9 Malignant neoplasm of colon, unspecified (principal); C50.411 Malignant neoplasm of upper-outer quadrant of right female breast; Z17.0 Estrogen receptor positive status [ER+]
CPT/HCPCS: 36415; 80053; 82378; 85025; 86300

== ENCOUNTER 2021-12-24 08:40 | Outpatient (CLI) | payer OTHER, SELFPAY ==
[2021-12-24 08:55] LABS: Basophils Percent Auto 0.8 % (0.2-1.2); Eosinophils Absolute Auto 0.1 K/mm3 (0-0.3); Eosinophils Percent Auto 1.9 % (0-4.4); Hematocrit 45.2 % (37.0-47.0); Hemoglobin 14.3 g/dL (12.0-15.0); Immature Granulocyte Absolute 0.01 K/mm3 (0.00-0.031); Immature Granulocyte Percent A 0.2 % (0-0.5); Lymphocytes Absolute Auto 1.22 K/mm3 (0.9-3.2); Lymphocytes Percent Auto 23.6 % (18.3-44.2); Mean Corpuscular HGB Conc 31.6 g/dl (32-36); Mean Corpuscular Hemoglobin 30.2 pg (26-34); Mean Corpuscular Volume 95.6 fl (80-100); Mean Platelet Volume 10.7 fl (7.4-10.4); Monocytes Absolute Auto 0.3 K/mm3 (0.1-0.6); Monocytes Percent Auto 6.2 % (2.6-8.5); Neutrophils Absolute Auto 3.5 K/mm3 (1.3-6.7); Neutrophils Percent Auto 67.3 % (45.5-73.1); Platelet Count Result 217 k/mm3 (150-375); Red Blood Count 4.73 M/mm3 (4.2-5.4); Red Cell Distribution Width 13.9 % (11.5-14.5); White Blood Count 5.2 K/mm3 (4.5-10.0)
[2021-12-24 09:57] LABS: Alanine Aminotransferase 9 U/L (4-35); Albumin Level 4.1 g/dL (3.5-5.1); Alkaline Phosphatase 100 U/L (38-126); Anion Gap 7 mmol/L (8-16); Aspartate Amino Transferase 20 U/L (14-36); Bilirubin,Total 0.9 mg/dL (0.2-1.3); Blood Urea Nitrogen 15 mg/dL (7-17); Calcium 9.3 mg/dL (8.4-10.2); Carbon Dioxide 27 mmol/L (22-30); Chloride 107 mmol/L (98-107); Estimated Glomerular Filt Rate 55; Glucose 91 mg/dL (65-110); Potassium 3.8 mmol/L (3.4-5.0); Sodium 141 mmol/L (137-145)
[2021-12-24 10:24] LABS: Carcinoembryonic Antigen 1.7 ng/mL (0.0-3.0)
[2021-12-28 09:38] LABS: CA 15-3 12 U/mL (<32)
== END 2021-12-24 08:41 | disposition home or self-care (01) ==
LOC: ANHLAB 08:42
PROVIDERS: PCP Internal Medicine; Visit Provider Internal Medicine Hematology & Oncology
DX: C18.9 Malignant neoplasm of colon, unspecified (principal); Z17.0 Estrogen receptor positive status [ER+]; C50.411 Malignant neoplasm of upper-outer quadrant of right female breast
CPT/HCPCS: 36415; 80053; 82378; 85025; 86300

== ENCOUNTER → 2021-12-25 09:33 | Outpatient (CLI) | payer OTHER, SELFPAY ==
--- NOTE | ~2021-12-25 | MM_ITS ---
EXAMINATION: MM screening [facility] BI w jones HISTORY: Screening TECHNIQUE: Craniocaudal and mediolateral oblique 3-D tomosynthesis images were obtained and synthetic 2-D images were generated. CAD analysis was submitted and interpreted. COMPARISON: Comparison to multiple prior studies sequentially, with oldest reviewed study dated 05/16. BREAST PARENCHYMAL COMPOSITION: There are scattered areas of fibroglandular density. FINDINGS: There is no evidence of suspicious mass, calcification, or architectural distortion to sugg est malignancy in either breast. There has been no suspicious interval change. IMPRESSION: 1. No mammographic evidence of malignancy. 2. Recommend routine screening mammography in one year. BI-RADS Category 1: Negative Reviewed, dictated and finalized at location A.
--- NOTE | ~2021-12-25 | CT_ITS ---
EXAMINATION: CT abdomen pelvis w con EXAM DATE: 12/25/2021 10:28 INDICATION: Malignant neoplasm of colon. Breast cancer. TECHNIQUE: Spiral CT of the abdomen and pelvis was performed following intravenous injection of 100 m L Omnipaque 350. Axial, coronal and sagittal images of the abdomen and pelvis were reviewed. The do se-length product (DLP) for this examination was 1057.85 mGy-cm. The exposure was tailored according to patient size (auto mA exposure control), and iterative reconstruction (ASIR) was used as addition al dose reduction technique. Comparison is made to prior examination from 02/22/2020. FINDINGS: The liver, spleen, adrenal glands and pancreas are unremarkable. There are cholecystectom y clips. Portal and splenic veins are patent. Kidneys enhance symmetrically. There is no hydroneph rosis. The uterus is unremarkable. There is a 6.8 cm left renal cyst. The bladder is unremarkable. There is no retroperitoneal or pelvic lymphadenopathy. There is mild scattered arteriosclerotic di sease. Cecal resection. There is extensive sigmoid predominant colonic diverticulosis. There is no adjacent inflammatory change to suggest diverticulitis. There is small sliding gastroesophageal hiatal herni a. There is expected amount of colonic stool. No free intraperitoneal gas. The heart is normal i n size. There are no pericardial or pleural effusions. The lung bases are unremarkable. There is 5 x 10 mm left iliac crest sclerosis is stable, bone island. IMPRESSION: 1. No evidence of metastatic disease. 2. Small hiatal hernia. 3. Extensive sigmoid diverticulosis. Reviewed, dictated and finalized at location A.
[2021-12-25 10:10] LABS: Estimated Glomerular Filt Rate > 60
== END ==
PROVIDERS: PCP Internal Medicine; Visit Provider Internal Medicine Hematology & Oncology
DX: Z12.31 Encounter for screening mammogram for malignant neoplasm of breast (principal); C18.9 Malignant neoplasm of colon, unspecified; K44.9 Diaphragmatic hernia without obstruction or gangrene; K57.30 Diverticulosis of large intestine without perforation or abscess without bleeding
CPT/HCPCS: 74177; 77063; 77067; Q9967

== ENCOUNTER → 2022-05-29 08:54 | Outpatient (CLI) | payer OTHER, SELFPAY ==
--- NOTE | ~2022-05-29 | XR_ITS ---
EXAMINATION: XR chest 2V DATE: 05/29/2022 09:05 INDICATION: Cough and shortness of breath TECHNIQUE: AP and lateral views of the chest are obtained. COMPARISON: 12/10/2016 FINDINGS: There are minimal airspace opacities of the right midlung zone and left lung base. No pleur al effusion or pneumothorax. The cardiomediastinal silhouette is normal. The right internal jugular P ort-A-Cath has been removed. IMPRESSION: 1. Minimal airspace opacities right midlung zone and left lung base, consistent with atelectasis vers us pneumonia. Reviewed, dictated and finalized at location B. IMPRESSION: 1. Minimal airspace opacities right midlung zone and left lung base, consistent with atelectasis versus pneumonia.
== END ==
PROVIDERS: PCP Internal Medicine; Visit Provider Internal Medicine
DX: R05.9 Cough, unspecified (principal); R06.02 Shortness of breath; R91.8 Other nonspecific abnormal finding of lung field
CPT/HCPCS: 71046

== ENCOUNTER 2022-06-24 08:30 | Outpatient (CLI) | payer OTHER, SELFPAY ==
[2022-06-24 11:44] LABS: Alanine Aminotransferase 17 U/L (6-35); Alkaline Phosphatase 106 U/L (38-126); Anion Gap 9 mmol/L (8-16); Aspartate Amino Transferase 25 U/L (14-36); Bilirubin,Total 0.7 mg/dL (0.2-1.3); Blood Urea Nitrogen 14 mg/dL (7-17); Calcium 9.3 mg/dL (8.4-10.2); Carbon Dioxide 26 mmol/L (22-30); Chloride 104 mmol/L (98-107); Cholesterol 212 mg/dL (0-200); Estimated Glomerular Filt Rate 55; Glucose 98 mg/dL (65-110); HDL Direct 47 mg/dL; Potassium 4.3 mmol/L (3.4-5.0); Sodium 139 mmol/L (137-145); Triglycerides 146 mg/dL (<150)
[2022-06-24 11:55] LABS: LDL Cholesterol Direct 117 mg/dL
[2022-06-24 12:00] LABS: Vitamin D 25 Hydroxy 37.1 ng/mL
== END 2022-06-24 08:31 | disposition home or self-care (01) ==
LOC: ANHLAB 09:12
PROVIDERS: PCP Internal Medicine; Visit Provider Nurse Practitioner
DX: E78.00 Pure hypercholesterolemia, unspecified (principal); Z13.21 Encounter for screening for nutritional disorder
CPT/HCPCS: 36415; 80053; 80061; 82306

== ENCOUNTER → 2022-12-29 09:32 | Outpatient (CLI) | payer OTHER, SELFPAY ==
--- NOTE | ~2022-12-29 | CT_ITS ---
CT of the Abdomen and Pelvis: Indication: Colon cancer Technique: 2.5 mm axial scans were obtained through the abdomen and pelvis following intravenous adm inistration of 100 cc of Omnipaque 350. Dose reduction technique was used on this scan by utilizing a utomated exposure control and iterative reconstruction technique. The dose-length product (DLP) was 1 063.58 mGy-cm. COMPARISON: 12/25/2021 Findings: Scans through the lung bases are unremarkable. The liver, spleen, pancreas, adrenals and kidneys are within normal limits. Cholecystectomy clips are present. No evidence of aortic aneurysm. No lymphadenopathy. No bowel obstruction or bowel wall thickening. There is sigmoid diverticulosis. Anastomosis noted at the right colon. Images through the pelvis were performed. Urinary bladder unremarkable. No adnexal mass seen. No asci amado. Impression: No evidence for active malignancy or metastatic disease. No change from prior exam. Stable postoperative change. Reviewed, dictated and finalized at location . Impression: No evidence for active malignancy or metastatic disease. No change from prior e xam. Stable postoperative change.
--- NOTE | ~2022-12-29 | MM_ITS ---
EXAMINATION: MM screening mae BI w jones HISTORY: Screening mammogram TECHNIQUE: Craniocaudal and mediolateral oblique 3-D tomosynthesis images were obtained and synthetic 2-D images were generated. Bilateral rotated lateral CC views. CAD analysis was submitted and interp reted. COMPARISON: December 25, 2021 mammogram bilateral screening June 03, 2021 diagnostic right mammogram November 27, 2020 diagnostic bilateral mammogram BREAST PARENCHYMAL COMPOSITION: There are scattered areas of fibroglandular density. FINDINGS: Multiple surgical clips are noted in the right axilla/axillary tail area There is no eviden ce of suspicious mass, calcification, or architectural distortion to suggest malignancy in either celestina ast. There has been no suspicious interval change. IMPRESSION: 1. No mammographic evidence of malignancy. 2. Recommend routine screening mammography in one year. BI-RADS Category 2: Benign finding(s). Reviewed, dictated and finalized at location A.
[2022-12-29 10:38] LABS: Estimated Glomerular Filt Rate 55
== END ==
PROVIDERS: PCP Internal Medicine; Visit Provider Internal Medicine Hematology & Oncology
DX: Z12.31 Encounter for screening mammogram for malignant neoplasm of breast (principal); C18.9 Malignant neoplasm of colon, unspecified
CPT/HCPCS: 74177; 77063; 77067; Q9967

== ENCOUNTER 2022-12-29 10:57 | Outpatient (CLI) | payer OTHER, SELFPAY ==
[2022-12-29 12:00] LABS: Basophils Absolute Auto 0.1 K/mm3 (0.0-0.1); Basophils Percent Auto 0.9 % (0.2-1.2); Eosinophils Absolute Auto 0.2 K/mm3 (0-0.3); Eosinophils Percent Auto 3.7 % (0-4.4); Hematocrit 40.5 % (37.0-47.0); Hemoglobin 13.2 g/dL (12.0-15.0); Immature Granulocyte Absolute 0.02 K/mm3 (0.00-0.031); Immature Granulocyte Percent A 0.4 % (0-0.5); Immature Platelet Fraction Pct 3.3 % (0.9-11.2); Lymphocytes Absolute Auto 0.92 K/mm3 (0.9-3.2); Lymphocytes Percent Auto 17.2 % (18.3-44.2); Mean Corpuscular HGB Conc 32.6 g/dl (32-36); Mean Corpuscular Hemoglobin 30.3 pg (26-34); Mean Corpuscular Volume 93.1 fl (80-100); Mean Platelet Volume 10.8 fl (7.4-10.4); Monocytes Absolute Auto 0.4 K/mm3 (0.1-0.6); Monocytes Percent Auto 7.9 % (2.6-8.5); Neutrophils Absolute Auto 3.7 K/mm3 (1.3-6.7); Neutrophils Percent Auto 69.9 % (45.5-73.1); Platelet Count Result 199 k/mm3 (150-375); Red Blood Count 4.35 M/mm3 (4.2-5.4); Red Cell Distribution Width 13.7 % (11.5-14.5); White Blood Count 5.3 K/mm3 (4.5-10.0)
[2022-12-29 17:09] LABS: Alanine Aminotransferase 14 U/L (6-35); Albumin Level 3.8 g/dL (3.5-5.1); Alkaline Phosphatase 101 U/L (38-126); Anion Gap 8 mmol/L (8-16); Aspartate Amino Transferase 21 U/L (14-36); Bilirubin,Total 0.9 mg/dL (0.2-1.3); Blood Urea Nitrogen 16 mg/dL (7-17); Calcium 8.7 mg/dL (8.4-10.2); Carbon Dioxide 27 mmol/L (22-30); Chloride 104 mmol/L (98-107); Estimated Glomerular Filt Rate > 60; Glucose 89 mg/dL (65-110); Potassium 4.2 mmol/L (3.4-5.0); Sodium 139 mmol/L (137-145)
[2022-12-29 17:35] LABS: Carcinoembryonic Antigen 1.4 ng/mL (0.0-3.0)
[2023-01-02 04:30] LABS: CA 15-3 10 U/mL (<32)
== END 2022-12-29 10:58 | disposition home or self-care (01) ==
LOC: ANHLAB 10:58
PROVIDERS: PCP Internal Medicine; Visit Provider Internal Medicine Hematology & Oncology
DX: C50.411 Malignant neoplasm of upper-outer quadrant of right female breast (principal); Z17.0 Estrogen receptor positive status [ER+]
CPT/HCPCS: 36415; 80053; 82378; 85025; 85055; 86300

== ENCOUNTER → 2023-05-28 10:40 | Outpatient (CLI) | payer OTHER, SELFPAY ==
--- NOTE | ~2023-05-28 | DEXA_ITS ---
Bone Density Report Name: AJAY BENTON Age: 73 Sex: Female Ethnicity: White Date of : 1950 Indication: postmenopausal; screening for osteoporosis; height loss; cancer; Referring Provider: JAGRUTI SAMUELS Study: Bone densitometry was performed. Exam Date: May 28, 2023 Accession number: [id number] Bone Density: Region BMD T-score Z-score Classification AP Spine (L1-L4) 0.951 -0.9 1.4 Normal Femoral Neck (Left) 0.579 -2.4 -0.5 Osteopenia Total Hip (Left) 0.707 -1.9 -0.3 Osteopenia Femoral Neck (Right) 0.652 -1.8 0.2 Osteopenia Total Hip (Right) 0.733 -1.7 -0.1 Osteopenia Total Hip Mean 0.720 -1.8 -0.2 Osteopenia World Health Organization criteria for BMD impression classify patients as: Normal (T-score at or above -1.0), Osteopenia (T-score between -1.0 and -2.5), or Osteoporosis (T-score at or below -2.5). 10-year Fracture Risk(1): Major Osteoporotic Fracture 12% Hip Fracture 2.8% Reported Risk Factors: [place] (), Neck BMD=0.579, BMI=45.9 (1) FRAX(R) Version 3.08. Fracture probability calculated for an untreated patient. Fracture probability may be lower if the patient has received treatment. Previous Exams: Region Exam Age BMD T-score BMD Change BMD Change Date g/cm2 vs Baseline vs Previous AP Spine(L1-L4) 05/28/2023 73 0.951 -0.9 -0.021 -0.021 04/13/2009 59 0.972 -0.7 Total Hip(Left) 05/28/2023 73 0.707 -1.9 -0.211* -0.211* 04/13/2009 59 0.918 -0.2 Total Hip(Right) 05/28/2023 73 0.733 -1.7 -0.179* -0.179* 04/13/2009 59 0.912 -0.2 *Denotes significance at 95% confidence level, LSC for AP Spine = 0.022 g/cm2, LSC for Total Hip = 0.027 g/cm2 Clinical Information Provided by Patient: Has used the following medications: Calcium, vit D included in calcium, Anastrozole Has the following medical conditions: Cancer, breast cancer 2018, colon cancer 2016 Patient maximum height was 62.5 Menopause Age: 51 Does not regularly consume dairy products Drinks caffeinated beverages Onset of menses at age 14.5 Number of children 3 Impression: The patient has low bone mass, based on the Left Femoral Neck T-score. The patient has an estimated ten-year risk of hip fracture of 2.8% and an estimated ten-year risk of major fracture of 12%, based on the WHO FRAX algorithm. The BMD for the Total Hip(Left) decreased, changing by -0.211 since the last DXA exam. Th
== END ==
PROVIDERS: PCP Obstetrics & Gynecology; Visit Provider Family Medicine
DX: M81.0 Age-related osteoporosis without current pathological fracture (principal); M85.9 Disorder of bone density and structure, unspecified
CPT/HCPCS: 77080

== ENCOUNTER 2023-06-29 09:11 | Outpatient (CLI) | payer OTHER, SELFPAY ==
[2023-06-29 09:39] LABS: Basophils Absolute Auto 0.1 K/mm3 (0.0-0.1); Eosinophils Absolute Auto 0.1 K/mm3 (0-0.3); Eosinophils Percent Auto 2.7 % (0-4.4); Hematocrit 42.5 % (37.0-47.0); Hemoglobin 13.7 g/dL (12.0-15.0); Immature Granulocyte Absolute 0.02 K/mm3 (0.00-0.031); Immature Granulocyte Percent A 0.4 % (0-0.5); Lymphocytes Absolute Auto 1.49 K/mm3 (0.9-3.2); Lymphocytes Percent Auto 28.6 % (18.3-44.2); Mean Corpuscular HGB Conc 32.2 g/dl (32-36); Mean Corpuscular Hemoglobin 30.2 pg (26-34); Mean Corpuscular Volume 93.6 fl (80-100); Mean Platelet Volume 10.5 fl (7.4-10.4); Monocytes Absolute Auto 0.3 K/mm3 (0.1-0.6); Monocytes Percent Auto 6.5 % (2.6-8.5); Neutrophils Absolute Auto 3.2 K/mm3 (1.3-6.7); Neutrophils Percent Auto 60.8 % (45.5-73.1); Platelet Count Result 207 k/mm3 (150-375); Red Blood Count 4.54 M/mm3 (4.2-5.4); Red Cell Distribution Width 13.8 % (11.5-14.5); White Blood Count 5.2 K/mm3 (4.5-10.0)
[2023-06-29 11:40] LABS: Alanine Aminotransferase 13 U/L (6-35); Albumin Level 3.8 g/dL (3.5-5.1); Alkaline Phosphatase 98 U/L (38-126); Anion Gap 3 mmol/L (8-16); Aspartate Amino Transferase 20 U/L (14-36); Bilirubin,Total 0.8 mg/dL (0.2-1.3); Blood Urea Nitrogen 12 mg/dL (7-17); Calcium 9.1 mg/dL (8.4-10.2); Carbon Dioxide 29 mmol/L (22-30); Chloride 107 mmol/L (98-107); Estimated Glomerular Filt Rate 55; Glucose 86 mg/dL (65-110); Potassium 4.2 mmol/L (3.4-5.0); Sodium 139 mmol/L (137-145)
[2023-06-29 12:06] LABS: Carcinoembryonic Antigen 1.5 ng/mL (0.0-3.0)
[2023-07-01 06:34] LABS: CA 15-3 10 U/mL (<32)
== END 2023-06-29 09:12 | disposition home or self-care (01) ==
PROVIDERS: PCP Family Medicine; Visit Provider Internal Medicine Hematology & Oncology
DX: C18.9 Malignant neoplasm of colon, unspecified (principal); C50.411 Malignant neoplasm of upper-outer quadrant of right female breast; Z17.0 Estrogen receptor positive status [ER+]
CPT/HCPCS: 36415; 80053; 82378; 85025; 86300

== ENCOUNTER 2024-01-01 09:45 | Outpatient (CLI) | payer OTHER, SELFPAY ==
--- NOTE | ~2024-01-01 | MM_ITS ---
EXAMINATION: MM screening [facility] BI w jones HISTORY: Screening TECHNIQUE: Craniocaudal and mediolateral oblique 3-D tomosynthesis images were obtained and synthetic 2-D images were generated. CAD analysis was submitted and interpreted. COMPARISON: Comparison to multiple prior studies sequentially, with oldest reviewed study dated 02/2022. BREAST PARENCHYMAL COMPOSITION: There are scattered areas of fibroglandular density. FINDINGS: There is no evidence of suspicious mass, calcification, or architectural distortion to sugg est malignancy in either breast. There has been no suspicious interval change. IMPRESSION: 1. No mammographic evidence of malignancy. 2. Recommend routine screening mammography in one year. BI-RADS Category 1: Negative Reviewed, dictated and finalized at location A.
== END 2024-01-01 09:46 ==
PROVIDERS: PCP Family Medicine; Visit Provider Internal Medicine Hematology & Oncology
DX: Z12.31 Encounter for screening mammogram for malignant neoplasm of breast (principal)
CPT/HCPCS: 77063; 77067

== ENCOUNTER 2024-01-06 08:44 | Outpatient (CLI) | payer OTHER, SELFPAY ==
[2024-01-06 09:00] LABS: Basophils Percent Auto 0.8 % (0.2-1.2); Eosinophils Absolute Auto 0.1 K/mm3 (0-0.3); Eosinophils Percent Auto 2.5 % (0-4.4); Hematocrit 40.4 % (37.0-47.0); Hemoglobin 12.9 g/dL (12.0-15.0); Immature Granulocyte Absolute 0.01 K/mm3 (0.00-0.031); Immature Granulocyte Percent A 0.2 % (0-0.5); Lymphocytes Absolute Auto 1.35 K/mm3 (0.9-3.2); Lymphocytes Percent Auto 27.8 % (18.3-44.2); Mean Corpuscular HGB Conc 31.9 g/dl (32-36); Mean Corpuscular Hemoglobin 29.5 pg (26-34); Mean Corpuscular Volume 92.2 fl (80-100); Mean Platelet Volume 10.2 fl (7.4-10.4); Monocytes Absolute Auto 0.4 K/mm3 (0.1-0.6); Monocytes Percent Auto 8.7 % (2.6-8.5); Neutrophils Absolute Auto 2.9 K/mm3 (1.3-6.7); Platelet Count Result 205 k/mm3 (150-375); Red Blood Count 4.38 M/mm3 (4.2-5.4); Red Cell Distribution Width 13.7 % (11.5-14.5); White Blood Count 4.9 K/mm3 (4.5-10.0)
[2024-01-06 10:14] LABS: Alanine Aminotransferase 9 U/L (6-35); Albumin Level 3.8 g/dL (3.5-5.1); Alkaline Phosphatase 102 U/L (38-126); Anion Gap 4 mmol/L (4-12); Aspartate Amino Transferase 19 U/L (14-36); Bilirubin,Total 0.8 mg/dL (0.2-1.3); Blood Urea Nitrogen 15 mg/dL (7-17); Calcium 9.2 mg/dL (8.4-10.2); Carbon Dioxide 28 mmol/L (22-30); Chloride 106 mmol/L (98-107); Estimated Glomerular Filt Rate 55; Glucose 85 mg/dL (65-110); Potassium 3.9 mmol/L (3.4-5.0); Sodium 138 mmol/L (137-145)
[2024-01-06 10:36] LABS: Carcinoembryonic Antigen 1.5 ng/mL (0.0-3.0)
[2024-01-12 09:38] LABS: CA 15-3 10 U/mL (<32)
== END 2024-01-06 08:45 | disposition home or self-care (01) ==
LOC: ANHLAB 08:47
PROVIDERS: PCP Internal Medicine; Visit Provider Internal Medicine Hematology & Oncology
DX: C50.411 Malignant neoplasm of upper-outer quadrant of right female breast (principal); Z17.0 Estrogen receptor positive status [ER+]; C18.9 Malignant neoplasm of colon, unspecified
CPT/HCPCS: 36415; 80053; 82378; 85025; 86300

== ENCOUNTER 2024-05-11 01:18 | Day surgery (SDC) | payer OTHER, SELFPAY ==
[2024-04-21 13:22] VITALS: BMI 44.6
[2024-05-11 08:55] VITALS: BP 149/79; PULSE 108; RESP 18; TEMP 36.1; O2SAT 100; BMI 43.0
[2024-05-11] MEDS: LACTATED RINGERS 1,000 ML 150 ML IV CONT (09:18)
--- NOTE | 2024-05-11 09:45 | PM.HPGS ---
History of Present Illness History of Present Illness Consent: Risks, benefits, and alternatives have been discussed and questions answered. Patient agrees to proceed with procedure. Chief complaint: Personal history other malignant neoplasm of large Narrative: Dominga Barron is a 74 year old female here for colonoscopy, last one 2020. She has history of colon cancer resected in October 2016. Review of Systems Review of Systems: All systems reviewed & are unremarkable except as noted in HPI and below PMFSH Past Medical History Medical History (Updated 01/29/24 @ 10:33 by Ursula Ackerman APRN) Abnormal finding on breast imaging Acute hypokalemia Arthritis Bilateral cataracts Cancer of right breast (~06/2019) Colon cancer history of right-sided colon cancer status post right hemicolectomy and chemotherapy Colon cancer metastasized to intra-abdominal lymph node Colonoscopy planned Diarrhea Encounter for surgical aftercare following surgery on the digestive system Fatty liver GERD (gastroesophageal reflux disease) GI bleed Hiatal hernia HLD (hyperlipidemia) Hx of malignant neoplasm of colon Hyponatremia Incarcerated ventral hernia Kidney stones Malignant neoplasm of cecum (04/21/17) Morbid obesity with BMI of 40.0-44.9, adult (Unknown) Mucinous adenocarcinoma Osteoporosis Pap smear abnormality of cervix 07/31/20 Partial small bowel obstruction Port-A-Cath in place Secondary and unspecified malignant neoplasm of axilla and upper limb lymph nodes Ulcer Weakness Surgical History Surgical History (Updated 01/29/24 @ 10:30 by Ursula Ackerman APRN) H/O bilateral breast biopsy H/O construction of artificial vagina H/O hemicolectomy hand assisted laparoscopic right hemicolectomy in October of 2016 H/O tubal ligation Hx of appendectomy with the right hemicolectomy Hx of cholecystectomy open cholecystectomy in 1990 Umbilical hernia with obstruction Family History Family History (System 01/26/24 @ 12:13 by Ezequiel Hines) Mother Hypertension Family history of congenital heart disease Family history of lung cancer Father Family history of pancreatic cancer Sibling Family history of malignant neoplasm of breast in first degree relative Social History Social History (System 01/26/24 @ 12:13 by Ezequiel Hines) Smoking packs per day: 0.5 Smoking cigarettes per day: 10.0 Years smoked: 30 Smoking pack-years: 15.00 Smoking status: Former smoker Tobacco type: cigarettes Second hand tobacco smoke exposure: No Smoking end date: 09/21/01 Additional smoking assessment comments: about 3-4 cigarettes a day/ on and off smoker Alcohol intake: never Substance use: never Substance use type: does not use Lack of Transportation: No Lack of Food: Never True Current Housing: I Have Housing Concerned About Future Housing: No Difficulty Paying Gas/Electric Bills: No Difficulty Paying for Meds: No Currently Unemployed: No Education: Trade/Vocational Certificate Difficulty w/ Childcare or Family Care: No Living arrangements: with family Additional living arrangements comments: patient lives with her . Occupation/Education: retired Gender identity (if verbalized by the patient): Female Spiritual care concerns: No Agree to blood products: Yes Meds Home Medications and Allergies Home Medications Medication Instructions Recorded Confirmed Type anastrozole 1 mg tablet 1 mg PO DAILY #30 tabs 08/13/19 05/11/24 Rx calcium carbonate 600 mg-vitamin 1 cap PO DAILY 09/16/19 05/11/24 History D3 5 mcg (200 unit) capsule (Calcium 600 + D(3)) cinnamon bark 500 mg capsule 1,000 mg PO DAILY 10/22/20 05/11/24 History (Cinnamon) coenzyme T94-kkezuys E 100 mg-100 1 cap PO DAILY 10/22/20 05/11/24 History unit capsule inulin 2 gram chewable tablet 2 g PO DAILY 11/21/20 05/11/24 History (Fiber Gummies) potassium chloride 20 mEq 20 meq PO DAILY PRN hypocalem
[2024-05-11 10:06] VITALS: BP 99/61; PULSE 78; RESP 25; O2SAT 93
--- NOTE | 2024-05-11 10:08 | WPDANESEPPF ---
Anes - Initial Pre Proc Eval Procedure: Operation Date: 05/11/24 10:30 Proposed Procedures p Colonoscopy - Mateusz Toussaint MD Date/Time: 05/11/24 10:08 Surgeon: Mateusz Toussaint MD Pre Op Diagnosis: Personal history other malignant neoplasm of large Patient Data Age: 74 Gender: F Height: 1.55 m Weight: 103.4 kg Last Vital Signs Temp 97.0 F L 05/11/24 08:55 Pulse 108 H 05/11/24 08:55 Resp 18 05/11/24 08:55 BP 149/79 H 05/11/24 08:55 Pulse Ox 100 05/11/24 08:55 O2 Del Method Room Air 05/11/24 08:55 Allergies Allergy/AdvReac Type Severity Reaction Status Date / Time oxaliplatin Allergy Severe Dyspnea / Verified 05/11/24 09:03 SOB meloxicam Allergy Mild Rash Verified 05/11/24 09:03 Hhleekw-RNM-FmT Reductase Allergy Unknown Muscle Verified 05/11/24 09:03 Inhibitor aches [Xpcpxse-Psa-Mxt Reductase Inhibitor] Home Medications Medication Instructions Recorded Confirmed Type anastrozole 1 mg tablet 1 mg PO DAILY #30 tabs 08/13/19 05/11/24 Rx calcium carbonate 600 mg-vitamin 1 cap PO DAILY 09/16/19 05/11/24 History D3 5 mcg (200 unit) capsule (Calcium 600 + D(3)) cinnamon bark 500 mg capsule 1,000 mg PO DAILY 10/22/20 05/11/24 History (Cinnamon) coenzyme P33-srmfdxq E 100 mg-100 1 cap PO DAILY 10/22/20 05/11/24 History unit capsule inulin 2 gram chewable tablet 2 g PO DAILY 11/21/20 05/11/24 History (Fiber Gummies) potassium chloride 20 mEq 20 meq PO DAILY PRN hypocalemia 01/23/23 05/11/24 History tablet,extended release lisinopril 10 mg tablet 10 mg PO DAILY #90 tabs 11/24/23 05/11/24 Rx sodium,potassium,mag sulfates 17.5 See Rx Instructions PO .COMPLEX 02/09/24 05/11/24 Rx gram-3.13 gram-1.6 gram oral soln #354 mL (Suprep Bowel Prep Kit) rosuvastatin 5 mg tablet See Rx Instructions .Route 05/09/24 05/11/24 Rx .COMPLEX #24 tabs Patient hx anesthesia problems: none Family hx anesthesia problems: none Results Review: All pre-operative results and documents have been reviewed as part of the pre-operative evaluation. [facility] Past Medical History Medical History (Updated 01/29/24 @ 10:33 by Ursula Ackerman APRN) Abnormal finding on breast imaging Acute hypokalemia Arthritis Bilateral cataracts Cancer of right breast (~06/2019) Colon cancer history of right-sided colon cancer status post right hemicolectomy and chemotherapy Colon cancer metastasized to intra-abdominal lymph node Colonoscopy planned Diarrhea Encounter for surgical aftercare following surgery on the digestive system Fatty liver GERD (gastroesophageal reflux disease) GI bleed Hiatal hernia HLD (hyperlipidemia) Hx of malignant neoplasm of colon Hyponatremia Incarcerated ventral hernia Kidney stones Malignant neoplasm of cecum (04/21/17) Morbid obesity with BMI of 40.0-44.9, adult (Unknown) Mucinous adenocarcinoma Osteoporosis Pap smear abnormality of cervix 07/31/20 Partial small bowel obstruction Port-A-Cath in place Secondary and unspecified malignant neoplasm of axilla and upper limb lymph nodes Ulcer Weakness Surgical History Surgical History (Updated 01/29/24 @ 10:30 by Ursula Ackerman APRN) H/O bilateral breast biopsy H/O construction of artificial vagina H/O hemicolectomy hand assisted laparoscopic right hemicolectomy in October of 2016 H/O tubal ligation Hx of appendectomy with the right hemicolectomy Hx of cholecystectomy open cholecystectomy in 1990 Umbilical hernia with obstruction Family History Family History (System 01/26/24 @ 12:13 by Ezequiel Hines) Mother Hypertension Family history of congenital heart disease Family history of lung cancer Father Family history of pancreatic cancer Sibling Family history of malignant neoplasm of breast in first degree relative Social History Social History (System 01/26/24 @ 12:13 by Ezequiel Hines) Smoking packs per day: 0.5 Smoking cigarettes per day: 10.0
[2024-05-11 10:16] VITALS: BP 115/68; PULSE 64; RESP 24; O2SAT 96
[2024-05-11 10:26] VITALS: BP 128/65; PULSE 60; RESP 24; O2SAT 100
== END 2024-05-11 10:41 | disposition home or self-care (01) ==
PROVIDERS: PCP Family Medicine; Referring Provider Nurse Practitioner Family; Visit Provider Internal Medicine Gastroenterology
PROC: 0DJD8ZZ Inspection of Lower Intestinal Tract, Via Natural or Artificial Opening Endoscopic (ICD-10-PCS; CPT 45378; principal; 2024-05-11 10:30)
DX: Z12.11 Encounter for screening for malignant neoplasm of colon (principal); K64.8 Other hemorrhoids; K57.30 Diverticulosis of large intestine without perforation or abscess without bleeding; E78.5 Hyperlipidemia, unspecified; E87.1 Hypo-osmolality and hyponatremia; E87.6 Hypokalemia; K21.9 Gastro-esophageal reflux disease without esophagitis; M81.0 Age-related osteoporosis without current pathological fracture; E66.01 Morbid (severe) obesity due to excess calories; Z68.41 Body mass index [BMI] 40.0-44.9, adult; Z98.890 Other specified postprocedural states; Z90.49 Acquired absence of other specified parts of digestive tract; Z98.0 Intestinal bypass and anastomosis status; Z98.51 Tubal ligation status; Z87.891 Personal history of nicotine dependence; Z87.442 Personal history of urinary calculi; Z85.038 Personal history of other malignant neoplasm of large intestine; Z85.3 Personal history of malignant neoplasm of breast; Z80.1 Family history of malignant neoplasm of trachea, bronchus and lung; Z80.3 Family history of malignant neoplasm of breast; Z80.0 Family history of malignant neoplasm of digestive organs; Z82.49 Family history of ischemic heart disease and other diseases of the circulatory system
CPT/HCPCS: G0105; J2704; J7120

== ENCOUNTER 2024-07-06 09:13 | Outpatient (CLI) | payer OTHER, SELFPAY ==
[2024-07-06 09:40] LABS: Basophils Absolute Auto 0.1 K/mm3 (0.0-0.1); Eosinophils Absolute Auto 0.1 K/mm3 (0-0.3); Eosinophils Percent Auto 2.2 % (0-4.4); Hematocrit 40.8 % (37.0-47.0); Hemoglobin 13.2 g/dL (12.0-15.0); Immature Granulocyte Absolute 0.01 K/mm3 (0.00-0.031); Immature Granulocyte Percent A 0.2 % (0-0.5); Lymphocytes Absolute Auto 1.42 K/mm3 (0.9-3.2); Lymphocytes Percent Auto 28.3 % (18.3-44.2); Mean Corpuscular HGB Conc 32.4 g/dl (32-36); Mean Corpuscular Hemoglobin 29.8 pg (26-34); Mean Corpuscular Volume 92.1 fl (80-100); Mean Platelet Volume 9.9 fl (7.4-10.4); Monocytes Absolute Auto 0.4 K/mm3 (0.1-0.6); Monocytes Percent Auto 7.4 % (2.6-8.5); Neutrophils Absolute Auto 3.1 K/mm3 (1.3-6.7); Neutrophils Percent Auto 60.9 % (45.5-73.1); Platelet Count Result 196 k/mm3 (150-375); Red Blood Count 4.43 M/mm3 (4.2-5.4); Red Cell Distribution Width 13.7 % (11.5-14.5)
[2024-07-06 10:31] LABS: Alanine Aminotransferase 9 U/L (6-35); Albumin Level 3.7 g/dL (3.5-5.1); Alkaline Phosphatase 98 U/L (38-126); Anion Gap 6 mmol/L (4-12); Aspartate Amino Transferase 19 U/L (14-36); Bilirubin,Total 0.8 mg/dL (0.2-1.3); Blood Urea Nitrogen 15 mg/dL (7-17); Calcium 9.3 mg/dL (8.4-10.2); Carbon Dioxide 29 mmol/L (22-30); Chloride 104 mmol/L (98-107); Estimated Glomerular Filt Rate 49; Glucose 81 mg/dL (65-110); Sodium 139 mmol/L (137-145)
[2024-07-06 11:01] LABS: Carcinoembryonic Antigen 1.6 ng/mL (0.0-3.0)
[2024-07-08 11:59] LABS: CA 15-3 9 U/mL (<32)
== END 2024-07-06 09:14 | disposition home or self-care (01) ==
LOC: ANHLAB 09:15
PROVIDERS: PCP Family Medicine; Visit Provider Internal Medicine Hematology & Oncology
DX: C50.411 Malignant neoplasm of upper-outer quadrant of right female breast (principal); Z17.0 Estrogen receptor positive status [ER+]
CPT/HCPCS: 36415; 80053; 82378; 85025; 86300

== ENCOUNTER 2025-01-04 09:50 | Outpatient (CLI) | payer OTHER, MEDICARE, SELFPAY ==
--- NOTE | ~2025-01-04 | MM_ITS ---
EXAMINATION: MM screening [facility] BI w jones HISTORY: Screening TECHNIQUE: Craniocaudal and mediolateral oblique 3-D tomosynthesis images were obtained and synthetic 2-D images were generated. CAD analysis was submitted and interpreted. COMPARISON: Comparison to multiple prior studies sequentially, with oldest reviewed study dated 05/2021. BREAST PARENCHYMAL COMPOSITION: Not dense: There are scattered areas of fibroglandular density. FINDINGS: There is no evidence of suspicious mass, calcification, or architectural distortion to sugg est malignancy in either breast. There has been no suspicious interval change. IMPRESSION: 1. No mammographic evidence of malignancy. 2. Recommend routine screening mammography in one year. BI-RADS Category 1: Negative Reviewed, dictated and finalized at location B.
== END 2025-01-04 09:51 | disposition home or self-care (01) ==
LOC: MICIMG 09:56
PROVIDERS: PCP Family Medicine; Visit Provider Internal Medicine Hematology & Oncology
DX: Z12.31 Encounter for screening mammogram for malignant neoplasm of breast (principal)
CPT/HCPCS: 77063; 77067

== ENCOUNTER 2025-02-09 09:10 | Outpatient (CLI) | payer OTHER, MEDICARE, SELFPAY ==
--- OUTSIDE RECORDS SUMMARY | 2025-02-09 09:15 | XMS_ITS | Encounter Summary ---
Author Organization [facility] Address [address] [place] [address] Care Team Providers Care Director Check Name Role Phone Zia Benitez MD Primary Care Provider [phone] Encounter Details Date Type Department Care Team (Late st Contact Info) Description 11/16/2019 Chart Note [facility] Radiation Therapy [address] [place] [address] [place] [address] [place] [address] Social History Tobacco Use Types Packs/Day Years Used Date Smoking Tobacco: Former Cigarettes 0.3 25 Smokeless Tobacco: Never Alcohol Use Standard Drinks/Week Comments No 0 (1 standard drink = 0.6 oz pur e alcohol) Comments No Sex and Gender Information Value Date Recorded Sex Assigned at Not on file 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 Gender Identity Not on file Sexual Orientation Not on file documented as of this encounter Plan of Treatment Upcoming Encounters Date Type Department Care Team (Late st Contact Info) Description 02/16/2025 3:30 PM CDT Office Visit [facility] Oncology and Hematology - [facility] Nikkie Coyle [address] [place] [phone] Galindo Rodriguez MD [address] [facility] [address] [place] [address] documented as of this encounter Visit Diagnoses Not on filedocumented in this encounter Care Teams Director Check Relationship Specialty Start Date End Date Zia Benitez MD [address] [place] [address] PCP - General Family Practice 07/07/23 documented as of this encounter
--- OUTSIDE RECORDS SUMMARY | 2025-02-09 09:15 | XMS_ITS | Encounter Summary ---
Author Organization [facility] Address [address] [place] [address] Care Team Providers Care Welder Apprentice Gas Name Role Phone Zia Benitez MD Primary Care Provider [phone] Encounter Details Date Type Department Care Team (Late st Contact Info) Description 02/07/2025 External Device Data [facility] ABSTRACTION Provider, Abstract NO ADDRESS ON FILE Social History Tobacco Use Types Packs/Day Years Used Date Smoking Tobacco: Former Cigarettes 0.3 25 Smokeless Tobacco: Never Alcohol Use Standard Drinks/Week Comments No 0 (1 standard drink = 0.6 oz pur e alcohol) Comments No Sex and Gender Information Value Date Recorded Sex Assigned at Not on file 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 Oncology and Hematology - [place] [address] [facility] [address] [place] [address] Galindo Rodriguez MD [address] [facility] [address] [place] [address] documented as of this encounter Visit Diagnoses Not on filedocumented in this encounter Care Teams Welder Apprentice Gas Relationship Specialty Start Date End Date Zia Benitez MD [address] [place] [id number] PCP - General Family Practice 07/07/23 documented as of this encounter
--- OUTSIDE RECORDS SUMMARY | 2025-02-09 09:15 | XMS_ITS | Clinical Summary ---
Author Organization [facility] Address [address] [place] [address] Care Team Providers Care Clinical Research Scientist Name Role Phone Zia Benitez MD Primary Care Provider [phone] [phone] Allergies Active Allergy Reactions Criticality Noted Date Comments Fmmbrem-Sga-Jwu Reductase Inhibitors Muscle Pain Low 12/01/2016 Medications calcium citrate-vitamin D3 (CITRACAL WITH VIT D) 200 mg calcium -250 unit Tablet Take 2 Tablets by mouth. Active Cinnamon Bark (CINNAMON) 500 mg Capsule Take 1 Capsule by mouth. Active FLUZONE HIGH-DOSE 2017-, PF, 180 mcg/0.5 mL Syringe syringe 8 Active rosuvastatin (CRESTOR) 5 mg tablet TAKE 1 TABLET BY MOUTH EVERY DAY FOR CHOLESTEROL 0 Active metoprolol succinate (TOPROL XL) 25 mg Extended Release 24 hour tablet TAKE 1 TABLET BY MOUTH EVERY DAY 1 Active coenzyme Q10 200 mg Capsule Take 200 mg by mouth daily. Active potassium (POTASSIMIN ORAL) Take 25 mg by mouth. Active anastrozole (ARIMIDEX) 1 mg tablet Take 1 Tablet (1 mg) by mouth daily. 90 Tablet 3 4 Active Active Problems Problem Noted Date Diagnosed Date Malignant neoplasm of upper- outer quadrant of right breast in female, estrogen receptor positive 08/23/2019 Morbid obesity with BMI of 40.0-44.9, adult 01/2017 Obesity (BMI 35.0-39.9 without comorbidity) 12/20 Overlapping malignant neoplasm of colon 12/02/19 17 Encounters Date Type Department Care Team Description 02/07/2025 External Device Data [facility] ABSTRACTION Provider, Abstract 01/04/2025 Orders Only [facility] Oncology and Hematology - [place] [address] [place] [id number] Galindo Rodriguez MD from Last 3 Months Family History Medical History Relation Name Comments Cancer Father Heart Disease Mother Breast Cancer Sister 1 Healthy Sister 2 Healthy Sister 3 Relation Name Status Comments Father Mother Sister 1 Alive Sister 2 Alive Sister 3 Alive Social History Tobacco Use Types Packs/Day Years Used Date Smoking Tobacco: Former Cigarettes 0.3 25 Smokeless Tobacco: Never Tobacco Cessation:Counseling Given: Not Answered Alcohol Use Standard Drinks/Week Comments No 0 (1 standard drink = 0.6 oz pur e alcohol) Comments No Sex and Gender Information Value Date Recorded Sex Assigned at Not on file 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 Gender Identity Not on file Sexual Orientation Not on file Last Filed Vital Signs Vital Sign Reading Time Taken Comments Blood Pressure 131/81 07/13/2024 10:25 AM CDT Pulse 72 07/13/2024 10:25 AM CDT Temperature 36.6 C (97.8 F) 07/13/2024 10:25 AM CDT Respiratory Rate 16 07/13/2024 10:25 AM CDT Oxygen Saturation 93% 07/13/2024 10:25 AM CDT Inhaled Oxygen Concentration - - Weight 106.1 kg (234 lb) 07/13/2024 10:25 AM CDT Height 154.9 cm (5' 1 ) 07/02/2022 11:25 AM CDT Body Mass Index 44.21 07/02/2022 11:25 AM CDT Plan of Treatment Upcoming Encounters Date Type Department Care Team (Late st Contact Info) Description 02/16/2025 3:30 PM CDT Office Visit [facility] Oncology and Hematology - [place] [address] [place] [phone] Galindo Rodriguez MD [address] [facility] [address] [place] [phone] Health Maintenance Due Date Last Done Comments DTAP/TDAP/TD VACCINES (1 - Tdap) 1970 PNEUMOCOCCAL VACCINE 50+ YEA RS (1 of 1 - PCV) 2001 ZOSTER VACCINE (1 of 2) 2001 RSV VACCINE (60+ or ) (1 - Risk 60-74 years 1-dose series) 2011 OSTEOPOROSIS SCREENING 02/05/2016 INFLUENZA VACCINE (#1) 2024 06/24/2022 Medicare Advantage ([place]) Preventative Visit/Annual Wellness Visit 09/21/2024 BREAST CANCER SCREENING 01/04/2026 01/05/20, 01/01/2024, 06/03/2021, Additional history exists Procedures Procedure Name Priority Date/Time Associated Diagnosis Comments MAMMO SCREENING BILAT Routine 01/04/2025 11:17 AM CDT from Last 3 Months Results * MAMMO SCREENING BILAT (01/04/2025 11:17 AM CDT) Anatomical Region Laterality Modality Breast Bilateral Mammography Galindo Rodriguez MD MAMMO ORDERABLES Final Result from Last 3 Months Insurance [facility] Address: [place] [address] [facility] MCR Care Teams Clinical Research Scientist Relationship Specialty Start Date End Date Zia Benitez MD [address] [place] [id number] PCP - General Family Practice 07/07/23
[2025-02-09 09:44] LABS: Hematocrit 42.9 % (37.0-47.0); Hemoglobin 13.8 g/dL (12.0-15.0); Mean Corpuscular HGB Conc 32.2 g/dl (32-36); Mean Corpuscular Hemoglobin 29.7 pg (26-34); Mean Corpuscular Volume 92.3 fl (80-100); Platelet Count Result 207 k/mm3 (150-375); Red Blood Count 4.65 M/mm3 (4.2-5.4); Red Cell Distribution Width 14.1 % (11.5-14.5); White Blood Count 5.4 K/mm3 (4.5-10.0)
[2025-02-09 12:04] LABS: Alanine Aminotransferase 12 U/L (6-35); Alkaline Phosphatase 99 U/L (38-126); Anion Gap 6 mmol/L (4-12); Aspartate Amino Transferase 26 U/L (14-36); Bilirubin,Total 0.9 mg/dL (0.2-1.3); Blood Urea Nitrogen 19 mg/dL (7-17); Calcium 9.2 mg/dL (8.4-10.2); Carbon Dioxide 28 mmol/L (22-30); Chloride 106 mmol/L (98-107); Cholesterol 199 mg/dL (0-200); Estimated Glomerular Filt Rate 48; Glucose 83 mg/dL (65-110); HDL Direct 54 mg/dL; Sodium 140 mmol/L (137-145); Triglycerides 133 mg/dL (<150)
[2025-02-09 12:15] LABS: LDL Cholesterol Direct 93 mg/dL
[2025-02-09 12:24] LABS: Vitamin D 25 Hydroxy 33.5 ng/mL
[2025-02-09 12:36] LABS: Creatinine Urine 135.3 mg/dL
[2025-02-09 12:39] LABS: MALB Creatinine Ratio 118.3 mg/g (0-30); Microalbumin Urine Random 160.1 mg/L (0-16.7)
[2025-02-09 12:44] LABS: Carcinoembryonic Antigen 1.8 ng/mL (0.0-3.0)
[2025-02-15 13:39] LABS: CA 15-3 11 U/mL (<32)
== END 2025-02-09 09:11 | disposition home or self-care (01) ==
LOC: ANHLAB 09:11
PROVIDERS: PCP Nurse Practitioner Family; Visit Provider Internal Medicine Hematology & Oncology
DX: C50.911 Malignant neoplasm of unspecified site of right female breast (principal); I12.9 Hypertensive chronic kidney disease with stage 1 through stage 4 chronic kidney disease, or unspecified chronic kidney disease; N18.31 Chronic kidney disease, stage 3a; E78.5 Hyperlipidemia, unspecified; M85.80 Other specified disorders of bone density and structure, unspecified site; K21.9 Gastro-esophageal reflux disease without esophagitis; E66.01 Morbid (severe) obesity due to excess calories; Z68.41 Body mass index [BMI] 40.0-44.9, adult; G47.62 Sleep related leg cramps; Z13.1 Encounter for screening for diabetes mellitus; Z85.038 Personal history of other malignant neoplasm of large intestine
CPT/HCPCS: 36415; 80053; 80061; 82043; 82306; 82378; 85027; 86300